=== PATIENT | male | born 1965 | race Caucasian/White ===

== ENCOUNTER 2023-07-07 13:02 | Inpatient (IN) | payer OTHER ==
[2023-07-07] MEDS: LACTATED RINGERS SOLUTION 1000 ML INFUS.BAG IV ONE (14:30)
[2023-07-07 14:37] LABS: HEMATOCRIT 35.9 % (35.4-49); HEMOGLOBIN 11.8 G/dL (11.7-16.9); MCH 26.7 pg (25.7-33.7); MCHC 32.9 g/dl (32.0-35.9); MEAN CELL VOLUME 81.3 fl (80-96); MEAN PLT VOLUME 7.2 fl (7.5-11.1); PLATELET COUNT 322.2 10^3/uL (134-434); RBC 4.42 10^6/uL (4.00-5.60); WHITE BLOOD COUNT 8.1 10^3/uL (4.0-10.8)
[2023-07-07 14:46] LABS: INR 1.17 (0.83-1.09); PROTHROMBIN TIME (PATIENT) 13.5 SEC (9.7-13.0)
[2023-07-07 14:50] LABS: EPITHELIAL CELLS 0-5 /hpf
[2023-07-07 14:55] LABS: ALBUMIN 3.2 g/dl (3.4-5.0); BILIRUBIN,TOTAL 0.5 mg/dl (0.2-1); CALCIUM 9.3 mg/dl (8.5-10.1); CREATININE 0.7 mg/dl (0.6-1.3); POTASSIUM 4.3 mmol/L (3.5-5.1); TOT PROT 5.3 g/dl (6.4-8.2)
[2023-07-07 15:04] LABS: ACTIVATED PTT 25.5 SECONDS (25.2-36.5)
[2023-07-07 15:13] LABS: PLATELET ESTIMATE ADEQUATE
[2023-07-07] MEDS ORDERED: ACETAMINOPHEN INJECTION 100 ML IVPB ONE (15:42)
[2023-07-07] MEDS: ACETAMINOPHEN 1000 MG/100 ML BAG IVPB ONE (15:45)
[2023-07-07] MEDS ORDERED: ACETAMINOPHEN 1000 MG/100 ML BAG IVPB PRN (19:58)
[2023-07-08] MEDS ORDERED: MELATONIN 5 MG TABLETS PO PRN (01:21)
[2023-07-08 09:19] LABS: CALCIUM 8.5 mg/dl (8.5-10.1); CREATININE 0.6 mg/dl (0.6-1.3); PHOSPHOROUS 4.7 (2.5-4.9); POTASSIUM 4.6 mmol/L (3.5-5.1)
[2023-07-08 09:20] LABS: MAGNESIUM 1.9 mg/dL (1.8-2.4)
[2023-07-08] MEDS: SODIUM CHLORIDE 1,000 ML IV SCH (09:31)
[2023-07-08] MEDS: ESCITALOPRAM OXALATE 10 MG TABLET PO SCH (09:36)
[2023-07-08 09:56] LABS: BASO % 0.3 % (0-2.0); EOS % 0.5 % (0-4.5); HEMOGLOBIN 10.4 GM/dL (11.7-16.9); MCH 26.9 pg (25.7-33.7); MCHC 33.7 g/dl (32.0-35.9); MEAN CELL VOLUME 79.8 fl (80-96); MEAN PLT VOLUME 7.6 fl (7.5-11.1); MONO % 14.6 % (3.8-10.2); NEUT % 77.6 % (42.8-82.8); PLATELET COUNT 327 10^3/uL (134-434); RBC 3.88 M/mm3 (4.00-5.60); RDW 15.3 % (11.9-15.9); WHITE BLOOD COUNT 6.8 K/mm3 (4.0-10.0)
[2023-07-08] MEDS ORDERED: HEPARIN NA (PORCINE) 5,000 UNITS/ML 1ML VIAL SQ SCH (14:00)
[2023-07-08] MEDS ORDERED: ACETAMINOPHEN 325 MG TABLET (FP) PO PRN (19:58)
[2023-07-08 21:09] LABS: HIV INTERPRETATION NEGATIVE (NEGATIVE)
[2023-07-09 07:59] LABS: BASO % 0.3 % (0-2.0); EOS % 0.3 % (0-4.5); HEMATOCRIT 31.2 % (35.4-49); HEMOGLOBIN 10.4 GM/dL (11.7-16.9); LYMPH % 6.7 % (8-40); MCHC 33.4 g/dl (32.0-35.9); MEAN CELL VOLUME 80.7 fl (80-96); MEAN PLT VOLUME 7.2 fl (7.5-11.1); MONO % 14.5 % (3.8-10.2); NEUT % 78.2 % (42.8-82.8); PLATELET COUNT 357 10^3/uL (134-434); RBC 3.86 M/mm3 (4.00-5.60); RDW 15.7 % (11.9-15.9); WHITE BLOOD COUNT 7.3 K/mm3 (4.0-10.0)
[2023-07-09 08:10] LABS: INR 1.17 (0.83-1.09); PROTHROMBIN TIME (PATIENT) 13.6 SEC (9.7-13.0)
[2023-07-09 08:32] LABS: POTASSIUM 4.7 mmol/L (3.5-5.1)
[2023-07-09 08:34] LABS: BLOOD UREA NITROGEN 14.1 mg/dL (7-18); CALCIUM 8.4 mg/dL (8.5-10.1); MAGNESIUM 2.2 mg/dL (1.8-2.4)
[2023-07-09 08:37] LABS: CREATININE 0.6 mg/dL (0.55-1.3)
[2023-07-09 08:38] LABS: PHOSPHOROUS 4.2 mg/dL (2.5-4.9)
[2023-07-09 08:39] LABS: BILIRUBIN,TOTAL 0.5 mg/dL (0.2-1); TOT PROT 4.8 g/dl (6.4-8.2)
[2023-07-09] MEDS ORDERED: MIDAZOLAM HCL 2 MG/2 ML SINGLE DOSE VIAL ONE (10:49)
[2023-07-09] MEDS: SODIUM CHLORIDE 500 ML IV SCH (11:45)
[2023-07-09] MEDS: MIDAZOLAM HCL 2 MG/2 ML SINGLE DOSE VIAL IVPUSH ONE ×2 (11:58→12:09)
[2023-07-09] MEDS: FENTANYL CITRATE/PF 50 MCG/ML VIAL IVPUSH ONE ×2 (11:58→12:09)
[2023-07-09 12:06] LABS: HEMOGLOBIN 11.7 GM/dL (11.7-16.9); MCH 26.3 pg (25.7-33.7); MCHC 32.4 g/dl (32.0-35.9); MEAN CELL VOLUME 81.1 fl (80-96); MEAN PLT VOLUME 7.5 fl (7.5-11.1); PLATELET COUNT 441 10^3/uL (134-434); RBC 4.44 M/mm3 (4.00-5.60); RDW 15.8 % (11.9-15.9); WHITE BLOOD COUNT 8.5 K/mm3 (4.0-10.0)
[2023-07-09 12:24] LABS: ANISOCYTOSIS 0; MACROCYTOSIS 0
[2023-07-09 12:25] LABS: PLATELET ESTIMATE ADEQUATE
[2023-07-09] MEDS: SODIUM CHLORIDE 1,000 ML IV SCH (15:00)
[2023-07-09] MEDS: VITAMIN B COMPLEX W/C COMBO TABLET (FP) PO SCH (15:01)
[2023-07-09] MEDS ORDERED: CYPROHEPTADINE HCL 4 MG TABLET PO SCH (16:30)
[2023-07-09] MEDS: CYPROHEPTADINE HCL 4 MG TABLET PO SCH (19:38)
[2023-07-10 06:29] LABS: BASO % 0.6 % (0-2.0); EOS % 0.7 % (0-4.5); HEMATOCRIT 31.6 % (35.4-49); HEMOGLOBIN 10.6 GM/dL (11.7-16.9); LYMPH % 6.8 % (8-40); MCH 26.9 pg (25.7-33.7); MCHC 33.5 g/dl (32.0-35.9); MEAN CELL VOLUME 80.3 fl (80-96); MEAN PLT VOLUME 7.1 fl (7.5-11.1); MONO % 11.9 % (3.8-10.2); PLATELET COUNT 369 10^3/uL (134-434); RBC 3.93 M/mm3 (4.00-5.60); RDW 15.4 % (11.9-15.9); WHITE BLOOD COUNT 7.3 K/mm3 (4.0-10.0)
[2023-07-10 06:57] LABS: POTASSIUM 4.7 mmol/L (3.5-5.1)
[2023-07-10 07:02] LABS: BLOOD UREA NITROGEN 15.1 mg/dL (7-18); CALCIUM 8.3 mg/dL (8.5-10.1)
[2023-07-10 07:06] LABS: CREATININE 0.7 mg/dL (0.55-1.3)
[2023-07-10 07:07] LABS: BILIRUBIN,TOTAL 0.4 mg/dL (0.2-1); TOT PROT 4.8 g/dl (6.4-8.2)
[2023-07-10 08:11] LABS: CARCINOEMBRYONIC ANTIGEN 2.5 ng/mL (0.0-4.7)
[2023-07-10] MEDS: ONDANSETRON 4 MG/2 ML VIAL IVPUSH PRN (12:36)
[2023-07-10] MEDS ORDERED: TRIMETHOBENZAMIDE HCL 200MG/2ML INJ IM PRN (15:39)
[2023-07-10] MEDS: MAG HYDROX/AL HYDROX/SIMETH 30 ML UNIT-DOSE CUP PO PRN (18:22)
[2023-07-11] MEDS: SIMETHICONE 80 MG TAB.CHEW (FP) PO PRN (02:44)
[2023-07-11 09:41] LABS: BASO % 0.5 % (0-2.0); EOS % 0.4 % (0-4.5); HEMATOCRIT 34.5 % (35.4-49); HEMOGLOBIN 11.3 GM/dL (11.7-16.9); LYMPH % 6.5 % (8-40); MCH 26.6 pg (25.7-33.7); MCHC 32.7 g/dl (32.0-35.9); MEAN CELL VOLUME 81.5 fl (80-96); MEAN PLT VOLUME 7.3 fl (7.5-11.1); MONO % 13.1 % (3.8-10.2); NEUT % 79.5 % (42.8-82.8); PLATELET COUNT 413 10^3/uL (134-434); RBC 4.23 M/mm3 (4.00-5.60); RDW 15.4 % (11.9-15.9); WHITE BLOOD COUNT 8.1 K/mm3 (4.0-10.0)
[2023-07-11 10:00] LABS: POTASSIUM 4.6 mmol/L (3.5-5.1)
[2023-07-11 10:09] LABS: CALCIUM 8.5 mg/dL (8.5-10.1)
[2023-07-11 10:10] LABS: BLOOD UREA NITROGEN 18.2 mg/dL (7-18)
[2023-07-11 10:13] LABS: CREATININE 0.8 mg/dL (0.55-1.3)
[2023-07-11] MEDS: FUROSEMIDE 40 MG/4 ML INJECTABLE VIAL IVPUSH ONE (11:53)
[2023-07-11] MEDS: ENOXAPARIN NA (PORCINE) 40 MG/0.4 ML DISP.SYRIN SQ SCH (12:11)
[2023-07-11] MEDS: SENNOSIDES/DOCUSATE COMBO (SENNA PLUS) TABLET (UD) PO PRN (18:03)
[2023-07-11] MEDS: ACETAMINOPHEN 325 MG TABLET (FP) PO PRN (18:20)
[2023-07-11] MEDS: POLYETHYLENE GLYCOL (HEALTHYLAX) 3350 17 GM PACKET PO SCH (22:24)
[2023-07-12] MEDS: SODIUM PHOSPHATE/NA BIPHOS 133 ML ENEMA RC ONE (04:40)
[2023-07-12 09:17] LABS: BASO % 0.7 % (0-2.0); EOS % 0.3 % (0-4.5); HEMATOCRIT 33.5 % (35.4-49); LYMPH % 8.7 % (8-40); MCH 26.5 pg (25.7-33.7); MCHC 32.9 g/dl (32.0-35.9); MEAN CELL VOLUME 80.4 fl (80-96); MONO % 10.2 % (3.8-10.2); NEUT % 80.1 % (42.8-82.8); PLATELET COUNT 459 10^3/uL (134-434); RBC 4.17 M/mm3 (4.00-5.60); RDW 15.7 % (11.9-15.9); WHITE BLOOD COUNT 8.6 K/mm3 (4.0-10.0)
[2023-07-12 09:20] LABS: POTASSIUM 4.8 mmol/L (3.5-5.1)
[2023-07-12 09:23] LABS: ALBUMIN 2.1 g/dl (3.4-5.0); BLOOD UREA NITROGEN 19.4 mg/dL (7-18); CALCIUM 8.3 mg/dL (8.5-10.1)
[2023-07-12 09:26] LABS: CREATININE 0.8 mg/dL (0.55-1.3)
[2023-07-12 09:28] LABS: BILIRUBIN,TOTAL 0.5 mg/dL (0.2-1); TOT PROT 5.3 g/dl (6.4-8.2)
[2023-07-12] MEDS: SENNOSIDES/DOCUSATE COMBO (SENNA PLUS) TABLET (UD) PO ONE (14:48)
[2023-07-12 15:00] VITALS: BMI 23.6
[2023-07-13 05:44] VITALS: BP 105/55; PULSE 98; RESP 16; TEMP 97.7
[2023-07-13] MEDS: FUROSEMIDE 40 MG/4 ML INJECTABLE VIAL IVPUSH ONE (10:20)
== END 2023-07-13 13:25 | disposition home or self-care (01) | DRG 841 ==
LOC: FER 13:02 → FM/S 16:43 → UNDOADMIN 16:43 → J7W 07-08 15:15
PROVIDERS: ADMIT Internal Medicine; ATTEND Internal Medicine
DX: C85.80 Other specified types of non-Hodgkin lymphoma, unspecified site (principal); E44.0 Moderate protein-calorie malnutrition; E87.1 Hypo-osmolality and hyponatremia; R59.0 Localized enlarged lymph nodes; K86.9 Disease of pancreas, unspecified; R60.0 Localized edema; F32.A Depression, unspecified; K59.00 Constipation, unspecified; R63.4 Abnormal weight loss; Z68.23 Body mass index [BMI] 23.0-23.9, adult
CPT/HCPCS: 36415; 38505; 70492-TC; 71260-TC; 74177-TC; 76536-TC; 77012-TC; 80048; 80053; 81003; 81015; 82378; 82962; 83615; 83690; 83735; 83930; 83935; 84100; 84153; 84300; 84436; 84439; 84443; 85025; 85027; 85610; 85730; 86301; 87086; 87389; 88300-TC; 88305-TC; 93306-TC; 93970-TC; 99285-25; J0131; Q9967

== ENCOUNTER 2023-08-09 10:42 | Inpatient (IN) | payer OTHER ==
[2023-08-09] MEDS ORDERED: NOREPINEPHRINE BITARTRATE/D5W 8 MG/250 ML BAG IVPB ONE (11:07)
[2023-08-09 11:12] LABS: VENOUS O2 SATURATION 79.7 % (70-80); VENOUS PCO2 63.3 mmHg (38-52)
[2023-08-09 11:15] LABS: VENOUS PH 7.053 (7.310-7.410)
[2023-08-09] MEDS: SODIUM CHLORIDE 1,000 ML IV STA ×2 (11:21→11:22)
[2023-08-09 11:22] LABS: HEMATOCRIT 28.1 % (35.4-49); HEMOGLOBIN 8.5 GM/dL (11.7-16.9); MCH 26.1 pg (25.7-33.7); MCHC 30.3 g/dl (32.0-35.9); MEAN CELL VOLUME 86.2 fl (80-96); RBC 3.26 M/mm3 (4.00-5.60)
[2023-08-09] MEDS ORDERED: VASopressin 20 UNITS/ML VIAL IV ONE (11:26)
[2023-08-09 11:29] LABS: INR 1.34 (0.83-1.09); PROTHROMBIN TIME (PATIENT) 15.5 SEC (9.7-13.0)
[2023-08-09 11:32] LABS: ACTIVATED PTT 41.4 SECONDS (25.2-36.5)
[2023-08-09 11:33] LABS: CHLORIDE 100 mmol/L (98-107); POTASSIUM 3.6 mmol/L (3.5-5.1); SODIUM 134 mmol/L (136-145)
[2023-08-09 11:35] LABS: ALBUMIN 1.4 g/dl (3.4-5.0); ANION GAP 15 mmol/L (4-13); BLOOD UREA NITROGEN 22.8 mg/dL (7-18); CO2 20 mmol/L (21-32); GLUCOSE,RANDOM 83 mg/dL (74-106)
[2023-08-09 11:38] LABS: CREATININE 1.1 mg/dL (0.55-1.3); SGOT/AST 196 U/L (15-37); SGPT/ALT 121 U/L (13-61)
[2023-08-09 11:40] LABS: BILIRUBIN,TOTAL 0.6 mg/dL (0.2-1); TOT PROT 4.1 g/dl (6.4-8.2)
[2023-08-09 11:41] LABS: ALK PHOS 112 U/L (45-117)
[2023-08-09] MEDS: NOREPINEPHRINE BITARTRATE 8,000 MCG in DEXTROSE 5%-WATER - 492 ML IV STA (11:45)
[2023-08-09] MEDS: SODIUM CHLORIDE IVPB STA (12:08)
[2023-08-09] MEDS: VASOPRESSIN IVPB STA (12:08)
[2023-08-09 12:11] LABS: EPI CELLS >36 /uL (0-25.1); HYALINE CASTS 19 /uL (0-3.1); PH,URINE 5.5 (5.0-8.0); URINE APPEARANCE CLOUDY; URINE BACTERIA 12 /uL (0-1359); URINE BILIRUBIN 1+ (NEGATIVE); URINE COLOR DK YELLOW; URINE GLUCOSE (UA) NEGATIVE (NEGATIVE); URINE KETONE TRACE (NEGATIVE); URINE LEUK ESTERASE TRACE (NEGATIVE); URINE NITRITE NEGATIVE (NEGATIVE); URINE PROTEIN 1+ (NEGATIVE); URINE WBC 98 /uL (0-25.8)
[2023-08-09 12:13] LABS: URINE RBC 72.5 /uL (0-23.9); YEAST NEGATIVE (NEGATIVE)
[2023-08-09 12:18] LABS: PLATELET COUNT 8 10^3/uL (134-434); WHITE BLOOD COUNT 0.3 K/mm3 (4.0-10.0)
[2023-08-09] MEDS ORDERED: TRIPLE LUMEN FLUSH 4 ML ML IVPUSH PRN (13:39)
[2023-08-09] MEDS ORDERED: VANCOMYCIN 1 GRAM (PRE-DOCKED) 1,000 MG/250 ML BAG IVPB ONE (13:43)
[2023-08-09] MEDS ORDERED: PIPERACILLIN/TAZOB 3.375 GM 3.375 GM/50 ML BAG IVPB ONE (13:43)
[2023-08-09] MEDS: VANCOMYCIN 1,000 MG in DEXTROSE 5%-WATER - 250 ML IVPB ONE (13:54)
[2023-08-09] MEDS: PIPERACILLIN/TAZOB 3.375 GM 3.375 GM in DEXTROSE 5%-WATER - 50 ML IVPB ONE (13:54)
[2023-08-09 14:01] LABS: CALCIUM 6.8 mg/dL (8.5-10.1)
[2023-08-09 14:50] LABS: LACTIC ACID 9.3 mmol/L (0.4-2.0)
[2023-08-09] MEDS ORDERED: DEXTROSE 50%-WATER 25 GM/50 ML DISP.SYRIN ONE (14:57)
[2023-08-09] MEDS: LACTATED RINGERS SOLUTION 1,000 ML/1,000 ML INFUS.BAG IV STA (16:04)
[2023-08-09] MEDS: HYDROCORTISONE SOD SUCCINATE 100 MG/2 ML VIAL IVPUSH SCH (16:05)
[2023-08-09] MEDS: SODIUM BICARBONATE 8.4% - 150 MEQ in DEXTROSE 5%-WATER - 950 ML IVPB SCH (16:05)
[2023-08-09] MEDS: SODIUM BICARBONATE 8.4% 50 MEQ/50 ML DISP.SYRIN IVPUSH SCH (16:46)
[2023-08-09] MEDS: PHENYLEPHRINE NS PREMIX 50,000 MCG/500 ML BAG CVP SCH (17:33)
[2023-08-09] MEDS: CEFEPIME 2 GM in DEXTROSE 5%-WATER 100 ML IVPB SCH (17:43)
[2023-08-09 17:56] LABS: ARTERIAL BLOOD GAS BASE EXCESS -0.9 mmol/L (-2-2); ARTERIAL BLOOD GAS PO2 80.6 mmHg (80-100); ARTERIAL BLOOD GAS pH 7.517 (7.350-7.450)
[2023-08-09] MEDS: TBO-FILGRASTIM 300 MCG/0.5 ML DISP.SYRINGE SQ ONE (17:58)
[2023-08-09] MEDS: CALCIUM GLUCONATE 10% - 1,000 MG/10 ML VIAL IVPB ONE (17:59)
[2023-08-09] MEDS ORDERED: CEFEPIME HCL 2 GM VIAL (RESTRICTED TO ID) IVPB SCH (18:00)
[2023-08-09] MEDS: CHLORHEXIDINE GLUCONATE 4% CLEANSER FOR DECOLONIZATION TP SCH (22:16)
[2023-08-09] MEDS: MUPIROCIN 2% TOPICAL OINTMENT FOR DECOLONIZATION NS SCH (22:16)
[2023-08-10 06:32] LABS: ARTERIAL BLD GAS O2 SATURATION 98.6 % (95-98); ARTERIAL BLOOD GAS BASE EXCESS -3.8 mmol/L (-2-2); ARTERIAL BLOOD GAS PO2 110.5 mmHg (80-100); ARTERIAL BLOOD GAS pH 7.537 (7.350-7.450)
[2023-08-10 06:41] LABS: VENT MODE A/C
[2023-08-10 06:42] LABS: VENT RATE 22
[2023-08-10] MEDS: NOREPINEPHRINE BITARTRATE/D5W 8 MG/250 ML BAG IVPB SCH (07:00)
[2023-08-10] MEDS: VASopressin 40 UNITS/100 ML BAG IV SCH (07:00)
[2023-08-10] MEDS ORDERED: PHENYLEPHRINE HCL 10 MG/1 ML SINGLE DOSE VIAL ONE (07:10)
[2023-08-10 07:51] LABS: HEMATOCRIT 21.1 % (35.4-49); MCH 26.7 pg (25.7-33.7); MCHC 32.7 g/dl (32.0-35.9); MEAN CELL VOLUME 81.7 fl (80-96); MEAN PLT VOLUME 9.2 fl (7.5-11.1); RBC 2.59 M/mm3 (4.00-5.60); RDW 16.6 % (11.9-15.9)
[2023-08-10 07:53] LABS: INR 2.07 (0.83-1.09); PROTHROMBIN TIME (PATIENT) 23.8 SEC (9.7-13.0)
[2023-08-10 07:56] LABS: ACTIVATED PTT 45.1 SECONDS (25.2-36.5)
[2023-08-10 08:08] LABS: CHLORIDE 101 mmol/L (98-107); SODIUM 138 mmol/L (136-145)
[2023-08-10 08:21] LABS: BLOOD UREA NITROGEN 27.4 mg/dL (7-18); CO2 18 mmol/L (21-32); GLUCOSE,RANDOM 162 mg/dL (74-106); LACTIC ACID 13.6 mmol/L (0.4-2.0); MAGNESIUM 1.6 mg/dL (1.8-2.4); SGPT/ALT 147 U/L (13-61); TOT PROT 2.9 g/dl (6.4-8.2)
[2023-08-10 08:23] LABS: ALK PHOS 106 U/L (45-117); CREATININE 1.5 mg/dL (0.55-1.3); PHOSPHOROUS 3.1 mg/dL (2.5-4.9)
[2023-08-10 08:31] LABS: HEMOGLOBIN 6.9 GM/dL (11.7-16.9); PLATELET COUNT 8 10^3/uL (134-434); WHITE BLOOD COUNT 0.1 K/mm3 (4.0-10.0)
[2023-08-10] MEDS ORDERED: NOREPINEPHRINE BITARTRATE 4 MG/4 ML ML IV ONE (09:03)
[2023-08-10 09:17] LABS: ANION GAP 20 mmol/L (4-13); CALCIUM 5.3 mg/dL (8.5-10.1); POTASSIUM 2.5 mmol/L (3.5-5.1); SGOT/AST 150 U/L (15-37)
[2023-08-10] MEDS: SODIUM BICARBONATE 8.4% - 150 MEQ in DEXTROSE 5%-WATER - 950 ML IVPB SCH (09:30)
[2023-08-10] MEDS ORDERED: CALCIUM CHLORIDE 1 GM/10 ML *DISP.SYRIN IVPB ONE (09:40)
[2023-08-10] MEDS ORDERED: PANTOPRAZOLE SODIUM 40 MG VIAL IVPUSH SCH (10:00)
[2023-08-10] MEDS: PHYTONADIONE 10 MG/1 ML AMP IVPB ONE (10:12)
[2023-08-10] MEDS: VANCOMYCIN/WATER 1250 MG 1,250 MG/250 ML BAG IVPB ONE (10:12)
[2023-08-10] MEDS: PANTOPRAZOLE SODIUM 40 MG VIAL IVPUSH SCH (10:15)
[2023-08-10] MEDS ORDERED: CALCIUM CHLORIDE 1 GM/10 ML *DISP.SYRIN ONE (10:22)
[2023-08-10] MEDS: CALCIUM GLUCONATE 10% - 1,000 MG/10 ML VIAL IVPB ONE ×2 (12:03→21:33)
[2023-08-10] MEDS: KCL 20 MEQ PREMIX BAG 20 MEQ/100 ML INFUS.BAG IVPB SCH ×2 (12:22→21:30)
[2023-08-10] MEDS: TBO-FILGRASTIM 300 MCG/0.5 ML DISP.SYRINGE SQ SCH (12:22)
[2023-08-10] MEDS: MAGNESIUM SULFATE IN WATER 2 GM/50 ML IVPB IVPB ONE ×2 (13:30→21:32)
[2023-08-10] MEDS: CEFEPIME 2 GM in DEXTROSE 5%-WATER 100 ML IVPB SCH (17:30)
[2023-08-10 18:19] LABS: LACTIC ACID 11.7 mmol/L (0.4-2.0)
[2023-08-10 18:21] LABS: CHLORIDE 99 mmol/L (98-107); HEMATOCRIT 28.6 % (35.4-49); HEMOGLOBIN 9.7 GM/dL (11.7-16.9); MCH 27.6 pg (25.7-33.7); MCHC 33.8 g/dl (32.0-35.9); MEAN CELL VOLUME 81.6 fl (80-96); MEAN PLT VOLUME 8.1 fl (7.5-11.1); PLATELET COUNT 39 10^3/uL (134-434); POTASSIUM 3.3 mmol/L (3.5-5.1); RBC 3.51 M/mm3 (4.00-5.60); RDW 15.9 % (11.9-15.9); SODIUM 138 mmol/L (136-145)
[2023-08-10 18:23] LABS: ANION GAP 18 mmol/L (4-13); CO2 21 mmol/L (21-32); GLUCOSE,RANDOM 162 mg/dL (74-106); MAGNESIUM 1.8 mg/dL (1.8-2.4)
[2023-08-10 18:25] LABS: ALBUMIN 1.2 g/dl (3.4-5.0); CREATININE 1.7 mg/dL (0.55-1.3); SGOT/AST 72 U/L (15-37); SGPT/ALT 123 U/L (13-61)
[2023-08-10 18:27] LABS: TOT PROT 3.5 g/dl (6.4-8.2)
[2023-08-10 18:28] LABS: ALK PHOS 101 U/L (45-117); BILIRUBIN,TOTAL 0.9 mg/dL (0.2-1); WHITE BLOOD COUNT 0.1 K/mm3 (4.0-10.0)
[2023-08-10] MEDS ORDERED: KCL 20 MEQ PREMIX BAG 20 MEQ/100 ML INFUS.BAG IVPB SCH (18:45)
[2023-08-10] MEDS ORDERED: DEXTROSE 50%-WATER 25 GM/50 ML DISP.SYRIN ONE (19:04)
[2023-08-10] MEDS ORDERED: CALCIUM GLUCONATE 10% - 1,000 MG/10 ML VIAL ONE (21:23)
[2023-08-10] MEDS ORDERED: ARTIFICIAL TEARS OPHTHALMIC DROPS OU PRN (22:44)
[2023-08-10] MEDS: VANCOMYCIN/WATER FOR INJ (PEG) 1,000 MG/200 ML BAG IVPB SCH (23:00)
[2023-08-11 06:08] LABS: ARTERIAL BLD GAS O2 SATURATION 99.8 % (95-98); ARTERIAL BLOOD GAS BASE EXCESS -3.1 mmol/L (-2-2); ARTERIAL BLOOD GAS PO2 367.3 mmHg (80-100); ARTERIAL BLOOD GAS pH 7.551 (7.350-7.450)
[2023-08-11 06:15] LABS: VENT MODE A/C; VENT RATE 16
[2023-08-11 07:31] LABS: INR 1.66 (0.83-1.09); PROTHROMBIN TIME (PATIENT) 19.2 SEC (9.7-13.0)
[2023-08-11 07:44] LABS: CHLORIDE 97 mmol/L (98-107); HEMATOCRIT 27.4 % (35.4-49); HEMOGLOBIN 9.3 GM/dL (11.7-16.9); MCH 27.4 pg (25.7-33.7); MCHC 33.9 g/dl (32.0-35.9); MEAN CELL VOLUME 80.8 fl (80-96); MEAN PLT VOLUME 8.6 fl (7.5-11.1); POTASSIUM 3.4 mmol/L (3.5-5.1); RDW 15.9 % (11.9-15.9); SODIUM 133 mmol/L (136-145)
[2023-08-11 07:48] LABS: ANION GAP 17 mmol/L (4-13); BLOOD UREA NITROGEN 33.8 mg/dL (7-18); CO2 20 mmol/L (21-32); MAGNESIUM 1.9 mg/dL (1.8-2.4)
[2023-08-11 07:49] LABS: ALBUMIN 1.1 g/dl (3.4-5.0); GLUCOSE,RANDOM 177 mg/dL (74-106); PLATELET COUNT 12 10^3/uL (134-434); WHITE BLOOD COUNT 0.1 K/mm3 (4.0-10.0)
[2023-08-11 07:50] LABS: SGPT/ALT 98 U/L (13-61); URIC ACID 2.2 mg/dL (2.6-7.2)
[2023-08-11 07:51] LABS: BILIRUBIN,DIRECT 0.4 mg/dL (0.0-0.2)
[2023-08-11 07:53] LABS: PHOSPHOROUS 3.5 mg/dL (2.5-4.9); TOT PROT 3.1 g/dl (6.4-8.2)
[2023-08-11 07:54] LABS: ALK PHOS 85 U/L (45-117); BILIRUBIN,TOTAL 0.8 mg/dL (0.2-1)
[2023-08-11] MEDS ORDERED: POTASSIUM CHLORIDE ORAL LIQUID 20 MEQ/15 ML PO ONE (07:57)
[2023-08-11] MEDS: ARTIFICIAL TEARS OPHTHALMIC DROPS OU SCH (08:10)
[2023-08-11 08:24] LABS: LACTIC ACID 11.4 mmol/L (0.4-2.0)
[2023-08-11 08:32] LABS: SGOT/AST 37 U/L (15-37)
[2023-08-11] MEDS: KCL 10 MEQ IVPB 10 MEQ/100 ML INFUS.BAG IVPB SCH (09:12)
[2023-08-11] MEDS: MEROPENEM 500 MG in DEXTROSE 5%-WATER 100 ML IVPB SCH (09:30)
[2023-08-11] MEDS: SODIUM CHLORIDE 1,000 ML IV SCH (10:00)
[2023-08-11 12:26] LABS: LACTIC ACID 10.8 mmol/L (0.4-2.0)
[2023-08-11 17:30] LABS: HEMATOCRIT 25.6 % (35.4-49); HEMOGLOBIN 8.5 GM/dL (11.7-16.9); MCHC 33.2 g/dl (32.0-35.9); MEAN CELL VOLUME 81.2 fl (80-96); MEAN PLT VOLUME 7.9 fl (7.5-11.1); PLATELET COUNT 53 10^3/uL (134-434); RBC 3.16 M/mm3 (4.00-5.60); RDW 15.9 % (11.9-15.9)
[2023-08-11 17:33] LABS: WHITE BLOOD COUNT 0.1 K/mm3 (4.0-10.0)
[2023-08-11 18:40] LABS: ANISOCYTOSIS 1+
[2023-08-11 18:41] LABS: OVALOCYTE 1+
[2023-08-11 20:21] LABS: PLATELET ESTIMATE DECREASED
[2023-08-12 06:45] LABS: HEMATOCRIT 24.2 % (35.4-49); HEMOGLOBIN 8.2 GM/dL (11.7-16.9); MCH 27.5 pg (25.7-33.7); MCHC 34.1 g/dl (32.0-35.9); MEAN CELL VOLUME 80.7 fl (80-96); MEAN PLT VOLUME 7.4 fl (7.5-11.1)
[2023-08-12 06:58] LABS: WHITE BLOOD COUNT 0.1 K/mm3 (4.0-10.0)
[2023-08-12 06:59] LABS: PLATELET COUNT 14 10^3/uL (134-434)
[2023-08-12 07:00] LABS: CHLORIDE 97 mmol/L (98-107); POTASSIUM 3.3 mmol/L (3.5-5.1); SODIUM 133 mmol/L (136-145)
[2023-08-12 07:04] LABS: ALBUMIN 1.1 g/dl (3.4-5.0)
[2023-08-12 07:05] LABS: ANION GAP 11 mmol/L (4-13); BLOOD UREA NITROGEN 37.9 mg/dL (7-18); CO2 25 mmol/L (21-32); GLUCOSE,RANDOM 107 mg/dL (74-106); MAGNESIUM 1.8 mg/dL (1.8-2.4)
[2023-08-12 07:07] LABS: CREATININE 1.9 mg/dL (0.55-1.3); URIC ACID 2.5 mg/dL (2.6-7.2)
[2023-08-12 07:09] LABS: PHOSPHOROUS 3.6 mg/dL (2.5-4.9); SGOT/AST 24 U/L (15-37); SGPT/ALT 64 U/L (13-61); TOT PROT 3.4 g/dl (6.4-8.2)
[2023-08-12 07:10] LABS: ALK PHOS 73 U/L (45-117); LDH 415 U/L (87-246)
[2023-08-12 07:14] LABS: CALCIUM 5.4 mg/dL (8.5-10.1)
[2023-08-12 09:28] LABS: ANISOCYTOSIS 1+; MACROCYTOSIS 0
[2023-08-12] MEDS: CALCIUM GLUC IN NACL, ISO-OSM 1 GM/50 ML BAG IVPB ONE (09:50)
[2023-08-12] MEDS: KCL 20 MEQ PREMIX BAG 20 MEQ/100 ML INFUS.BAG IVPB SCH (09:50)
[2023-08-12 13:23] VITALS: BMI 30.4
[2023-08-12] MEDS: MEROPENEM 1 GM in DEXTROSE 5%-WATER 100 ML IVPB SCH ×2 (14:06→19:58)
[2023-08-13 07:12] LABS: HEMATOCRIT 23.3 % (35.4-49); HEMOGLOBIN 7.9 GM/dL (11.7-16.9); MCH 27.4 pg (25.7-33.7); MCHC 33.9 g/dl (32.0-35.9); MEAN CELL VOLUME 80.8 fl (80-96); MEAN PLT VOLUME 9.3 fl (7.5-11.1); RBC 2.89 M/mm3 (4.00-5.60); RDW 16.2 % (11.9-15.9)
[2023-08-13 07:27] LABS: CO2 25 mmol/L (21-32); MAGNESIUM 1.9 mg/dL (1.8-2.4)
[2023-08-13 07:29] LABS: ALBUMIN 0.9 g/dl (3.4-5.0); BLOOD UREA NITROGEN 42.6 mg/dL (7-18); GLUCOSE,RANDOM 134 mg/dL (74-106); WHITE BLOOD COUNT 0.6 K/mm3 (4.0-10.0)
[2023-08-13 07:30] LABS: PLATELET COUNT 3 10^3/uL (134-434)
[2023-08-13 07:31] LABS: CREATININE 1.8 mg/dL (0.55-1.3); SGOT/AST 22 U/L (15-37); SGPT/ALT 48 U/L (13-61)
[2023-08-13 07:32] LABS: PHOSPHOROUS 3.2 mg/dL (2.5-4.9); TOT PROT 2.9 g/dl (6.4-8.2)
[2023-08-13 07:33] LABS: LDH 439 U/L (87-246)
[2023-08-13 07:35] LABS: ALK PHOS 66 U/L (45-117)
[2023-08-13 07:43] LABS: ANION GAP 12 mmol/L (4-13); CHLORIDE 99 mmol/L (98-107); POTASSIUM 3.4 mmol/L (3.5-5.1); SODIUM 136 mmol/L (136-145)
[2023-08-13 08:32] LABS: CALCIUM 5.9 mg/dL (8.5-10.1)
[2023-08-13] MEDS: POTASSIUM CHLORIDE ORAL LIQUID 20 MEQ/15 ML PO ONE (09:44)
[2023-08-13] MEDS: CALCIUM GLUCONATE 10% - 1,000 MG/10 ML VIAL IVPB ONE (09:47)
[2023-08-13 10:10] LABS: ANISOCYTOSIS 0; MACROCYTOSIS 0
[2023-08-13] MEDS: ALBUMIN HUMAN 25% 12.5 GM/50 ML VIAL IV SCH (13:08)
[2023-08-13] MEDS: FUROSEMIDE INJECTION 100 MG in DEXTROSE 5%-WATER - 40 ML IVPB SCH (13:09)
[2023-08-13 14:43] LABS: INR 1.5 (0.83-1.09); PROTHROMBIN TIME (PATIENT) 17.3 SEC (9.7-13.0)
[2023-08-13 14:46] LABS: ACTIVATED PTT 44.4 SECONDS (25.2-36.5)
[2023-08-13 14:47] LABS: HEMATOCRIT 21.4 % (35.4-49); HEMOGLOBIN 7.1 GM/dL (11.7-16.9); MCH 27.1 pg (25.7-33.7); MCHC 33.2 g/dl (32.0-35.9); MEAN CELL VOLUME 81.4 fl (80-96); MEAN PLT VOLUME 8.6 fl (7.5-11.1); RBC 2.63 M/mm3 (4.00-5.60); RDW 16.1 % (11.9-15.9)
[2023-08-13 14:53] LABS: PLATELET COUNT 19 10^3/uL (134-434); WHITE BLOOD COUNT 0.8 K/mm3 (4.0-10.0)
[2023-08-14 06:16] LABS: CHLORIDE 99 mmol/L (98-107); SODIUM 137 mmol/L (136-145)
[2023-08-14 06:20] LABS: ANION GAP 10 mmol/L (4-13); CO2 28 mmol/L (21-32); MAGNESIUM 1.8 mg/dL (1.8-2.4)
[2023-08-14 06:21] LABS: BLOOD UREA NITROGEN 46.9 mg/dL (7-18); GLUCOSE,RANDOM 104 mg/dL (74-106)
[2023-08-14 06:27] LABS: ALK PHOS 62 U/L (45-117); BILIRUBIN,TOTAL 1.3 mg/dL (0.2-1); LDH 420 U/L (87-246); SGOT/AST 14 U/L (15-37); SGPT/ALT 35 U/L (13-61); TOT PROT 3.2 g/dl (6.4-8.2); URIC ACID 3.2 mg/dL (2.6-7.2)
[2023-08-14 06:28] LABS: ALBUMIN 1.2 g/dl (3.4-5.0); CALCIUM 6.1 mg/dL (8.5-10.1)
[2023-08-14 06:35] LABS: HEMATOCRIT 21.7 % (35.4-49); HEMOGLOBIN 7.5 GM/dL (11.7-16.9); MCH 27.5 pg (25.7-33.7); MCHC 34.4 g/dl (32.0-35.9); MEAN CELL VOLUME 80.1 fl (80-96); MEAN PLT VOLUME 10.8 fl (7.5-11.1); RBC 2.71 M/mm3 (4.00-5.60); RDW 16.2 % (11.9-15.9); WHITE BLOOD COUNT 2.1 K/mm3 (4.0-10.0)
[2023-08-14 06:39] LABS: PLATELET COUNT 3 10^3/uL (134-434)
[2023-08-14] MEDS: ALBUMIN HUMAN 25% 12.5 GM/50 ML VIAL IV SCH ×2 (07:20→10:32)
[2023-08-14] MEDS ORDERED: FUROSEMIDE 40 MG/4 ML INJECTABLE VIAL IVPUSH SCH ×2 (08:45→10:00)
[2023-08-14] MEDS: POTASSIUM CHLORIDE ORAL LIQUID 20 MEQ/15 ML PO SCH (09:01)
[2023-08-14] MEDS: FUROSEMIDE 40 MG/4 ML INJECTABLE VIAL IVPUSH SCH ×2 (09:09→21:02)
[2023-08-14] MEDS: MEROPENEM 1 GM in DEXTROSE 5%-WATER 100 ML IVPB SCH (21:08)
[2023-08-15 07:04] LABS: CHLORIDE 100 mmol/L (98-107); SODIUM 137 mmol/L (136-145)
[2023-08-15 07:15] LABS: BLOOD UREA NITROGEN 50.8 mg/dL (7-18); GLUCOSE,RANDOM 111 mg/dL (74-106)
[2023-08-15 07:16] LABS: CO2 31 mmol/L (21-32)
[2023-08-15 07:17] LABS: URIC ACID 3.6 mg/dL (2.6-7.2)
[2023-08-15 07:18] LABS: SGPT/ALT 28 U/L (13-61)
[2023-08-15 07:19] LABS: CREATININE 2.2 mg/dL (0.55-1.3); MAGNESIUM 1.6 mg/dL (1.8-2.4); PHOSPHOROUS 3.2 mg/dL (2.5-4.9); SGOT/AST 16 U/L (15-37)
[2023-08-15 07:21] LABS: TOT PROT 3.3 g/dl (6.4-8.2)
[2023-08-15 07:22] LABS: BILIRUBIN,TOTAL 1.4 mg/dL (0.2-1)
[2023-08-15 07:27] LABS: LDH 428 U/L (87-246)
[2023-08-15 07:32] LABS: ALBUMIN 1.6 g/dl (3.4-5.0); ALK PHOS 107 U/L (45-117); ANION GAP 7 mmol/L (4-13); POTASSIUM 2.6 mmol/L (3.5-5.1)
[2023-08-15 07:40] LABS: HEMATOCRIT 18.4 % (35.4-49); MCH 27.3 pg (25.7-33.7); MEAN CELL VOLUME 80.5 fl (80-96); MEAN PLT VOLUME 8.4 fl (7.5-11.1); RBC 2.28 M/mm3 (4.00-5.60); RDW 16.1 % (11.9-15.9); WHITE BLOOD COUNT 7.6 K/mm3 (4.0-10.0)
[2023-08-15 07:49] LABS: HEMOGLOBIN 6.2 GM/dL (11.7-16.9); PLATELET COUNT 8 10^3/uL (134-434)
[2023-08-15] MEDS ORDERED: CALCIUM GLUCONATE 10% - 1,000 MG/10 ML VIAL IVPUSH ONE (08:45)
[2023-08-15] MEDS: CALCIUM GLUC IN NACL, ISO-OSM 1 GM/50 ML BAG IVPB ONE (09:02)
[2023-08-15 09:22] LABS: ANISOCYTOSIS 0; HELMET CELLS 0; HOWELL-JOLLY BODIES 0; MACROCYTOSIS 0; OVALOCYTE 0; ROULEAU 0; SICKELED CELLS 0; TARGET CELLS 0; TEAR DROP CELLS 0; TOXIC GRANULATION 0
[2023-08-15] MEDS: KCL 20 MEQ PREMIX BAG 20 MEQ/100 ML INFUS.BAG IVPB SCH (09:26)
[2023-08-15] MEDS ORDERED: POTASSIUM CHLORIDE ORAL LIQUID 20 MEQ/15 ML PO SCH (10:00)
[2023-08-15] MEDS: POTASSIUM CHLORIDE ORAL LIQUID 20 MEQ/15 ML GT ONE (11:43)
[2023-08-15] MEDS ORDERED: VANCOMYCIN/WATER 1250 MG 1,250 MG/250 ML BAG IVPB SCH ×2 (13:00)
[2023-08-15] MEDS: VANCOMYCIN/WATER FOR INJ (PEG) 1,000 MG/200 ML BAG IVPB ONE (13:53)
[2023-08-15 18:03] LABS: HEMATOCRIT 22.4 % (35.4-49); HEMOGLOBIN 7.6 GM/dL (11.7-16.9); MCH 27.8 pg (25.7-33.7); MCHC 33.6 g/dl (32.0-35.9); MEAN CELL VOLUME 82.6 fl (80-96); MEAN PLT VOLUME 8.4 fl (7.5-11.1); RBC 2.72 M/mm3 (4.00-5.60); RDW 16.8 % (11.9-15.9)
[2023-08-15 23:56] LABS: PLATELET COUNT 27 10^3/uL (134-434)
[2023-08-16 06:25] LABS: ARTERIAL BLOOD GAS BASE EXCESS 1.1 mmol/L (-2-2); ARTERIAL BLOOD GAS PO2 129.4 mmHg (80-100); ARTERIAL BLOOD GAS pH 7.559 (7.350-7.450)
[2023-08-16 06:26] LABS: VENT MODE A/C; VENT RATE 14
[2023-08-16 06:36] LABS: HEMOGLOBIN 8.7 GM/dL (11.7-16.9); MCH 27.8 pg (25.7-33.7); MCHC 33.4 g/dl (32.0-35.9); MEAN CELL VOLUME 83.3 fl (80-96); RBC 3.12 M/mm3 (4.00-5.60); RDW 16.6 % (11.9-15.9); WHITE BLOOD COUNT 19.9 K/mm3 (4.0-10.0)
[2023-08-16 06:44] LABS: PLATELET COUNT 9 10^3/uL (134-434)
[2023-08-16 07:20] LABS: CHLORIDE 102 mmol/L (98-107); SODIUM 142 mmol/L (136-145)
[2023-08-16 07:26] LABS: BLOOD UREA NITROGEN 56.9 mg/dL (7-18); CO2 31 mmol/L (21-32); GLUCOSE,RANDOM 119 mg/dL (74-106); MAGNESIUM 1.7 mg/dL (1.8-2.4)
[2023-08-16 07:27] LABS: ALBUMIN 1.5 g/dl (3.4-5.0)
[2023-08-16 07:29] LABS: PHOSPHOROUS 3.2 mg/dL (2.5-4.9); SGOT/AST 15 U/L (15-37); SGPT/ALT 23 U/L (13-61)
[2023-08-16 07:30] LABS: CREATININE 2.3 mg/dL (0.55-1.3)
[2023-08-16 07:31] LABS: BILIRUBIN,TOTAL 1.7 mg/dL (0.2-1); TOT PROT 3.5 g/dl (6.4-8.2)
[2023-08-16 07:32] LABS: ALK PHOS 108 U/L (45-117)
[2023-08-16 07:49] LABS: ANION GAP 9 mmol/L (4-13); CALCIUM 6.6 mg/dL (8.5-10.1); POTASSIUM 2.7 mmol/L (3.5-5.1)
[2023-08-16] MEDS: MAGNESIUM SULFATE IN WATER 2 GM/50 ML IVPB IVPB ONE (08:55)
[2023-08-16] MEDS: CALCIUM GLUCONATE 10% - 1,000 MG/10 ML VIAL IVPB ONE (09:43)
[2023-08-16] MEDS: KCL 20 MEQ PREMIX BAG 20 MEQ/100 ML INFUS.BAG IVPB SCH (10:00)
[2023-08-16 16:57] LABS: HEMOGLOBIN 8.3 GM/dL (11.7-16.9); MCH 27.3 pg (25.7-33.7); MEAN CELL VOLUME 82.7 fl (80-96); MEAN PLT VOLUME 7.5 fl (7.5-11.1); PLATELET COUNT 39 10^3/uL (134-434); RBC 3.03 M/mm3 (4.00-5.60); RDW 16.7 % (11.9-15.9); WHITE BLOOD COUNT 26.1 K/mm3 (4.0-10.0)
[2023-08-17 07:14] LABS: CHLORIDE 103 mmol/L (98-107); SODIUM 141 mmol/L (136-145)
[2023-08-17 07:17] LABS: ALBUMIN 1.4 g/dl (3.4-5.0); BLOOD UREA NITROGEN 63.3 mg/dL (7-18); GLUCOSE,RANDOM 108 mg/dL (74-106); HEMATOCRIT 24.3 % (35.4-49); HEMOGLOBIN 7.9 GM/dL (11.7-16.9); MCH 27.4 pg (25.7-33.7); MCHC 32.7 g/dl (32.0-35.9); RDW 16.6 % (11.9-15.9); WHITE BLOOD COUNT 27.8 K/mm3 (4.0-10.0)
[2023-08-17 07:18] LABS: CO2 31 mmol/L (21-32)
[2023-08-17 07:20] LABS: CREATININE 2.4 mg/dL (0.55-1.3); PHOSPHOROUS 3.2 mg/dL (2.5-4.9); SGOT/AST 17 U/L (15-37); SGPT/ALT 16 U/L (13-61)
[2023-08-17 07:22] LABS: BILIRUBIN,TOTAL 1.3 mg/dL (0.2-1); TOT PROT 3.4 g/dl (6.4-8.2)
[2023-08-17 07:23] LABS: ALK PHOS 119 U/L (45-117)
[2023-08-17 07:30] LABS: HEMATOCRIT 24.2 % (35.4-49); HEMOGLOBIN 7.9 GM/dL (11.7-16.9); MCH 27.4 pg (25.7-33.7); MCHC 32.8 g/dl (32.0-35.9); MEAN CELL VOLUME 83.6 fl (80-96); MEAN PLT VOLUME 9.2 fl (7.5-11.1); RDW 16.6 % (11.9-15.9)
[2023-08-17 08:07] LABS: PLATELET COUNT 11 10^3/uL (134-434)
[2023-08-17 08:08] LABS: ANION GAP 7 mmol/L (4-13); CALCIUM 6.5 mg/dL (8.5-10.1); PLATELET COUNT 12 10^3/uL (134-434); POTASSIUM 2.6 mmol/L (3.5-5.1)
[2023-08-17] MEDS: KCL 20 MEQ PREMIX BAG 20 MEQ/100 ML INFUS.BAG IVPB SCH ×2 (09:31→18:22)
[2023-08-17] MEDS: CALCIUM GLUC IN NACL, ISO-OSM 1 GM/50 ML BAG IVPB ONE (09:37)
[2023-08-17 10:31] LABS: ANISOCYTOSIS 0; HELMET CELLS 0; HOWELL-JOLLY BODIES 0; MACROCYTOSIS 0; OVALOCYTE 0; ROULEAU 0; SICKELED CELLS 0; TARGET CELLS 0; TEAR DROP CELLS 0; TOXIC GRANULATION 0
[2023-08-17 16:35] LABS: CHLORIDE 106 mmol/L (98-107); SODIUM 144 mmol/L (136-145)
[2023-08-17 16:37] LABS: ALBUMIN 1.3 g/dl (3.4-5.0); BLOOD UREA NITROGEN 68.2 mg/dL (7-18); CALCIUM 7.1 mg/dL (8.5-10.1); CO2 28 mmol/L (21-32); GLUCOSE,RANDOM 100 mg/dL (74-106)
[2023-08-17 16:40] LABS: CREATININE 2.4 mg/dL (0.55-1.3); SGOT/AST 22 U/L (15-37); SGPT/ALT 15 U/L (13-61)
[2023-08-17 16:42] LABS: BILIRUBIN,TOTAL 1.1 mg/dL (0.2-1); TOT PROT 3.3 g/dl (6.4-8.2)
[2023-08-17 16:43] LABS: ALK PHOS 120 U/L (45-117)
[2023-08-17 16:47] LABS: ANION GAP 11 mmol/L (4-13); POTASSIUM 2.9 mmol/L (3.5-5.1)
[2023-08-17] MEDS: POTASSIUM CHLORIDE ORAL LIQUID 20 MEQ/15 ML PO ONE (17:44)
[2023-08-18 07:29] LABS: CHLORIDE 106 mmol/L (98-107); HEMATOCRIT 21.6 % (35.4-49); MCH 27.2 pg (25.7-33.7); MCHC 32.7 g/dl (32.0-35.9); MEAN CELL VOLUME 83.3 fl (80-96); MEAN PLT VOLUME 10.5 fl (7.5-11.1); POTASSIUM 3.2 mmol/L (3.5-5.1); RBC 2.59 M/mm3 (4.00-5.60); RDW 17.2 % (11.9-15.9); SODIUM 143 mmol/L (136-145)
[2023-08-18 07:32] LABS: BLOOD UREA NITROGEN 70.1 mg/dL (7-18); PLATELET COUNT 13 10^3/uL (134-434); WHITE BLOOD COUNT 34.5 K/mm3 (4.0-10.0)
[2023-08-18 07:33] LABS: ALBUMIN 1.3 g/dl (3.4-5.0); ANION GAP 6 mmol/L (4-13); CO2 31 mmol/L (21-32); GLUCOSE,RANDOM 104 mg/dL (74-106); MAGNESIUM 2.1 mg/dL (1.8-2.4)
[2023-08-18 07:36] LABS: CREATININE 2.4 mg/dL (0.55-1.3); PHOSPHOROUS 3.1 mg/dL (2.5-4.9); SGOT/AST 19 U/L (15-37); SGPT/ALT 12 U/L (13-61)
[2023-08-18 07:37] LABS: BILIRUBIN,TOTAL 1.3 mg/dL (0.2-1); TOT PROT 3.1 g/dl (6.4-8.2)
[2023-08-18 07:38] LABS: ALK PHOS 135 U/L (45-117)
[2023-08-18 07:44] LABS: CALCIUM 6.8 mg/dL (8.5-10.1)
[2023-08-18] MEDS: POTASSIUM CHLORIDE ORAL LIQUID 20 MEQ/15 ML PO ONE (08:40)
[2023-08-18 09:09] LABS: ANISOCYTOSIS 2+; MACROCYTOSIS 0
[2023-08-19 07:18] LABS: HEMATOCRIT 23.5 % (35.4-49); HEMOGLOBIN 7.5 GM/dL (11.7-16.9); MCH 27.1 pg (25.7-33.7); MCHC 31.9 g/dl (32.0-35.9); MEAN CELL VOLUME 85.1 fl (80-96); MEAN PLT VOLUME 12.1 fl (7.5-11.1); PLATELET COUNT 23 10^3/uL (134-434); RBC 2.76 M/mm3 (4.00-5.60); RDW 17.1 % (11.9-15.9)
[2023-08-19 07:28] LABS: WHITE BLOOD COUNT 38.1 K/mm3 (4.0-10.0)
[2023-08-19 07:33] LABS: CHLORIDE 108 mmol/L (98-107); SODIUM 143 mmol/L (136-145)
[2023-08-19 07:39] LABS: CO2 30 mmol/L (21-32); GLUCOSE,RANDOM 126 mg/dL (74-106); MAGNESIUM 2.1 mg/dL (1.8-2.4)
[2023-08-19 07:40] LABS: ALBUMIN 1.3 g/dl (3.4-5.0)
[2023-08-19 07:42] LABS: CREATININE 2.4 mg/dL (0.55-1.3); PHOSPHOROUS 3.6 mg/dL (2.5-4.9); SGPT/ALT 11 U/L (13-61)
[2023-08-19 07:43] LABS: SGOT/AST 24 U/L (15-37)
[2023-08-19 07:44] LABS: BILIRUBIN,TOTAL 0.9 mg/dL (0.2-1); TOT PROT 3.2 g/dl (6.4-8.2)
[2023-08-19 07:48] LABS: ALK PHOS 199 U/L (45-117); ANION GAP 5 mmol/L (4-13); CALCIUM 6.8 mg/dL (8.5-10.1); POTASSIUM 2.8 mmol/L (3.5-5.1)
[2023-08-19] MEDS: KCL 10 MEQ IVPB 10 MEQ/100 ML INFUS.BAG IVPB SCH (08:21)
[2023-08-19 08:55] LABS: ANISOCYTOSIS 3+; MACROCYTOSIS 0
[2023-08-19] MEDS: VANCOMYCIN/WATER FOR INJ (PEG) 1,000 MG/200 ML BAG IVPB ONE (12:23)
[2023-08-19] MEDS: KCL 20 MEQ PREMIX BAG 20 MEQ/100 ML INFUS.BAG IVPB SCH (12:42)
[2023-08-19] MEDS: LACTATED RINGERS SOLUTION 1000 ML INFUS.BAG IV ONE (14:00)
[2023-08-19] MEDS: LACTATED RINGERS SOLUTION 1,000 ML/1,000 ML INFUS.BAG IV SCH (14:11)
[2023-08-19] MEDS: HYDROCORTISONE SOD SUCCINATE 100 MG/2 ML VIAL IVPUSH SCH (16:33)
[2023-08-19 18:32] LABS: POTASSIUM 3.2 mmol/L (3.5-5.1)
[2023-08-19 18:34] LABS: ALBUMIN 1.3 g/dl (3.4-5.0); BLOOD UREA NITROGEN 79.7 mg/dL (7-18); CALCIUM 7.1 mg/dL (8.5-10.1)
[2023-08-19 18:39] LABS: BILIRUBIN,TOTAL 0.9 mg/dL (0.2-1); TOT PROT 3.3 g/dl (6.4-8.2)
[2023-08-19 18:40] LABS: CREATININE 2.3 mg/dL (0.55-1.3)
[2023-08-20 07:30] LABS: HEMATOCRIT 21.1 % (35.4-49); MCHC 31.7 g/dl (32.0-35.9); MEAN CELL VOLUME 85.3 fl (80-96); MEAN PLT VOLUME 12.3 fl (7.5-11.1); RBC 2.47 M/mm3 (4.00-5.60); RDW 16.8 % (11.9-15.9)
[2023-08-20 07:34] LABS: CHLORIDE 112 mmol/L (98-107); SODIUM 147 mmol/L (136-145)
[2023-08-20 07:38] LABS: ALBUMIN 1.2 g/dl (3.4-5.0)
[2023-08-20 07:39] LABS: BLOOD UREA NITROGEN 81.4 mg/dL (7-18); CO2 28 mmol/L (21-32); GLUCOSE,RANDOM 146 mg/dL (74-106)
[2023-08-20 07:42] LABS: CREATININE 2.2 mg/dL (0.55-1.3); PHOSPHOROUS 3.7 mg/dL (2.5-4.9); SGOT/AST 28 U/L (15-37); SGPT/ALT 13 U/L (13-61)
[2023-08-20 07:43] LABS: BILIRUBIN,TOTAL 0.8 mg/dL (0.2-1)
[2023-08-20 07:45] LABS: WHITE BLOOD COUNT 34.8 K/mm3 (4.0-10.0)
[2023-08-20 07:46] LABS: HEMOGLOBIN 6.7 GM/dL (11.7-16.9); PLATELET COUNT 31 10^3/uL (134-434)
[2023-08-20 07:47] LABS: ALK PHOS 330 U/L (45-117); ANION GAP 8 mmol/L (4-13); CALCIUM 6.9 mg/dL (8.5-10.1); POTASSIUM 2.7 mmol/L (3.5-5.1)
[2023-08-20] MEDS: POTASSIUM CHLORIDE ORAL LIQUID 20 MEQ/15 ML PO ONE ×2 (08:42→18:20)
[2023-08-20 09:06] LABS: ANISOCYTOSIS 1+; MACROCYTOSIS 1+
[2023-08-20] MEDS: KCL 10 MEQ IVPB 10 MEQ/100 ML INFUS.BAG IVPB SCH (16:30)
[2023-08-20 16:34] LABS: HEMATOCRIT 24.8 % (35.4-49); MCH 26.4 pg (25.7-33.7); MCHC 32.2 g/dl (32.0-35.9); MEAN CELL VOLUME 82.2 fl (80-96); MEAN PLT VOLUME 11.8 fl (7.5-11.1); RBC 3.02 M/mm3 (4.00-5.60)
[2023-08-20 16:42] LABS: PLATELET COUNT 34 10^3/uL (134-434); WHITE BLOOD COUNT 39.4 K/mm3 (4.0-10.0)
[2023-08-20 16:45] LABS: CHLORIDE 112 mmol/L (98-107); SODIUM 144 mmol/L (136-145)
[2023-08-20 16:48] LABS: ALBUMIN 1.2 g/dl (3.4-5.0); BLOOD UREA NITROGEN 81.5 mg/dL (7-18); CO2 28 mmol/L (21-32); GLUCOSE,RANDOM 127 mg/dL (74-106)
[2023-08-20 16:51] LABS: CREATININE 2.1 mg/dL (0.55-1.3); SGOT/AST 33 U/L (15-37); SGPT/ALT 12 U/L (13-61)
[2023-08-20 16:52] LABS: BILIRUBIN,TOTAL 0.8 mg/dL (0.2-1); TOT PROT 2.9 g/dl (6.4-8.2)
[2023-08-20 16:54] LABS: ALK PHOS 341 U/L (45-117)
[2023-08-20 17:00] LABS: ANION GAP 5 mmol/L (4-13); CALCIUM 6.6 mg/dL (8.5-10.1); POTASSIUM 2.9 mmol/L (3.5-5.1)
[2023-08-20] MEDS: HYDROCORTISONE SOD SUCCINATE 100 MG/2 ML VIAL IVPUSH SCH (21:04)
[2023-08-21 06:46] LABS: HEMOGLOBIN 8.2 GM/dL (11.7-16.9); MCH 26.7 pg (25.7-33.7); MCHC 32.7 g/dl (32.0-35.9); MEAN CELL VOLUME 81.8 fl (80-96); MEAN PLT VOLUME 12.5 fl (7.5-11.1); PLATELET COUNT 52 10^3/uL (134-434); RBC 3.06 M/mm3 (4.00-5.60); RDW 17.4 % (11.9-15.9)
[2023-08-21 06:51] LABS: CHLORIDE 113 mmol/L (98-107); POTASSIUM 3.3 mmol/L (3.5-5.1); SODIUM 145 mmol/L (136-145)
[2023-08-21 06:57] LABS: ALBUMIN 1.3 g/dl (3.4-5.0); ANION GAP 2 mmol/L (4-13); BLOOD UREA NITROGEN 79.3 mg/dL (7-18); CO2 29 mmol/L (21-32); GLUCOSE,RANDOM 122 mg/dL (74-106); MAGNESIUM 1.8 mg/dL (1.8-2.4)
[2023-08-21 06:59] LABS: SGOT/AST 40 U/L (15-37); SGPT/ALT 14 U/L (13-61); WHITE BLOOD COUNT 40.4 K/mm3 (4.0-10.0)
[2023-08-21 07:00] LABS: PHOSPHOROUS 3.4 mg/dL (2.5-4.9)
[2023-08-21 07:01] LABS: TOT PROT 3.1 g/dl (6.4-8.2)
[2023-08-21 07:03] LABS: ALK PHOS 421 U/L (45-117); CALCIUM 6.3 mg/dL (8.5-10.1)
[2023-08-21] MEDS: POTASSIUM CHLORIDE ORAL LIQUID 20 MEQ/15 ML PO ONE (09:00)
[2023-08-21 09:09] LABS: ANISOCYTOSIS 3+; MACROCYTOSIS 0
[2023-08-21] MEDS: KCL 20 MEQ PREMIX BAG 20 MEQ/100 ML INFUS.BAG IVPB SCH (09:28)
[2023-08-22 07:46] LABS: HEMATOCRIT 25.2 % (35.4-49); HEMOGLOBIN 8.3 GM/dL (11.7-16.9); MCH 27.1 pg (25.7-33.7); MCHC 32.8 g/dl (32.0-35.9); MEAN CELL VOLUME 82.7 fl (80-96); MEAN PLT VOLUME 11.7 fl (7.5-11.1); PLATELET COUNT 64 10^3/uL (134-434); RBC 3.04 M/mm3 (4.00-5.60); RDW 16.8 % (11.9-15.9)
[2023-08-22 07:57] LABS: CHLORIDE 114 mmol/L (98-107); POTASSIUM 3.4 mmol/L (3.5-5.1); SODIUM 149 mmol/L (136-145)
[2023-08-22 08:01] LABS: ALBUMIN 1.3 g/dl (3.4-5.0); ANION GAP 5 mmol/L (4-13); BLOOD UREA NITROGEN 76.1 mg/dL (7-18); CO2 30 mmol/L (21-32); GLUCOSE,RANDOM 104 mg/dL (74-106); MAGNESIUM 1.9 mg/dL (1.8-2.4); WHITE BLOOD COUNT 34.4 K/mm3 (4.0-10.0)
[2023-08-22 08:04] LABS: CREATININE 1.8 mg/dL (0.55-1.3); PHOSPHOROUS 3.8 mg/dL (2.5-4.9); SGOT/AST 53 U/L (15-37); SGPT/ALT 17 U/L (13-61)
[2023-08-22 08:06] LABS: BILIRUBIN,TOTAL 0.8 mg/dL (0.2-1); TOT PROT 3.3 g/dl (6.4-8.2)
[2023-08-22 08:07] LABS: ALK PHOS 447 U/L (45-117)
[2023-08-22 08:09] LABS: CALCIUM 6.8 mg/dL (8.5-10.1)
[2023-08-22] MEDS: POTASSIUM CHLORIDE ORAL LIQUID 20 MEQ/15 ML NGT ONE (10:06)
[2023-08-23 07:14] LABS: CHLORIDE 117 mmol/L (98-107); POTASSIUM 3.3 mmol/L (3.5-5.1); SODIUM 151 mmol/L (136-145)
[2023-08-23 07:15] LABS: HEMATOCRIT 24.2 % (35.4-49); HEMOGLOBIN 7.8 GM/dL (11.7-16.9); MCH 27.2 pg (25.7-33.7); MCHC 32.4 g/dl (32.0-35.9); MEAN CELL VOLUME 83.9 fl (80-96); MEAN PLT VOLUME 11.1 fl (7.5-11.1); PLATELET COUNT 70 10^3/uL (134-434); RBC 2.88 M/mm3 (4.00-5.60); RDW 17.1 % (11.9-15.9); WHITE BLOOD COUNT 26.1 K/mm3 (4.0-10.0)
[2023-08-23 07:17] LABS: ALBUMIN 1.2 g/dl (3.4-5.0); ANION GAP 5 mmol/L (4-13); BLOOD UREA NITROGEN 76.7 mg/dL (7-18); CO2 29 mmol/L (21-32); GLUCOSE,RANDOM 139 mg/dL (74-106); MAGNESIUM 1.9 mg/dL (1.8-2.4)
[2023-08-23 07:20] LABS: CREATININE 1.6 mg/dL (0.55-1.3); PHOSPHOROUS 3.5 mg/dL (2.5-4.9); SGOT/AST 64 U/L (15-37); SGPT/ALT 25 U/L (13-61)
[2023-08-23 07:22] LABS: BILIRUBIN,TOTAL 0.6 mg/dL (0.2-1); TOT PROT 3.2 g/dl (6.4-8.2)
[2023-08-23 07:41] LABS: ALK PHOS 516 U/L (45-117); CALCIUM 6.8 mg/dL (8.5-10.1)
[2023-08-23] MEDS: KCL 20 MEQ PREMIX BAG 20 MEQ/100 ML INFUS.BAG IVPB SCH (09:28)
[2023-08-23] MEDS: HYDROCORTISONE SOD SUCCINATE 100 MG/2 ML VIAL IVPUSH SCH (09:29)
[2023-08-24 07:23] LABS: POTASSIUM 3.9 mmol/L (3.5-5.1)
[2023-08-24 07:25] LABS: ALBUMIN 1.2 g/dl (3.4-5.0); BLOOD UREA NITROGEN 65.9 mg/dL (7-18); MAGNESIUM 1.9 mg/dL (1.8-2.4)
[2023-08-24 07:28] LABS: CREATININE 1.5 mg/dL (0.55-1.3); PHOSPHOROUS 3.7 mg/dL (2.5-4.9)
[2023-08-24 07:30] LABS: BILIRUBIN,TOTAL 0.5 mg/dL (0.2-1); TOT PROT 3.3 g/dl (6.4-8.2)
[2023-08-24 07:31] LABS: HEMATOCRIT 27.1 % (35.4-49); HEMOGLOBIN 8.5 GM/dL (11.7-16.9); MCHC 31.5 g/dl (32.0-35.9); MEAN CELL VOLUME 85.7 fl (80-96); PLATELET COUNT 90 10^3/uL (134-434); RBC 3.16 M/mm3 (4.00-5.60); RDW 17.1 % (11.9-15.9); WHITE BLOOD COUNT 27.3 K/mm3 (4.0-10.0)
[2023-08-24] MEDS: DEXTROSE 5%-WATER - 1,000 ML IV SCH (09:14)
[2023-08-24] MEDS: ACETYLCYSTEINE 20% 200MG/ML 4 ML VIAL *FOR ORAL / INH USE ONLY NEB SCH (09:29)
[2023-08-24 09:46] LABS: ANISOCYTOSIS 0; MACROCYTOSIS 0
[2023-08-24] MEDS: ALBUTEROL SO4 0.083% IH SOL 2.5 MG/3 ML VIAL.NEB. NEB SCH (11:38)
[2023-08-24] MEDS ORDERED: ACETYLCYSTEINE 20% 200MG/ML 4 ML VIAL *FOR ORAL / INH USE ONLY NEB SCH (12:00)
[2023-08-24] MEDS: ACETAMINOPHEN 1000 MG/100 ML BAG IVPB PRN (22:27)
[2023-08-25 06:57] LABS: HEMATOCRIT 23.1 % (35.4-49); HEMOGLOBIN 7.3 GM/dL (11.7-16.9); MCHC 31.6 g/dl (32.0-35.9); MEAN CELL VOLUME 85.4 fl (80-96); MEAN PLT VOLUME 10.7 fl (7.5-11.1); PLATELET COUNT 107 10^3/uL (134-434); RDW 17.1 % (11.9-15.9); WHITE BLOOD COUNT 24.1 K/mm3 (4.0-10.0)
[2023-08-25 07:07] LABS: CHLORIDE 113 mmol/L (98-107); POTASSIUM 3.3 mmol/L (3.5-5.1); SODIUM 147 mmol/L (136-145)
[2023-08-25 07:11] LABS: ANION GAP 7 mmol/L (4-13); CO2 27 mmol/L (21-32)
[2023-08-25 07:12] LABS: ALBUMIN 1.2 g/dl (3.4-5.0); GLUCOSE,RANDOM 227 mg/dL (74-106); MAGNESIUM 1.8 mg/dL (1.8-2.4)
[2023-08-25 07:14] LABS: SGOT/AST 73 U/L (15-37)
[2023-08-25 07:15] LABS: CREATININE 1.3 mg/dL (0.55-1.3); PHOSPHOROUS 3.7 mg/dL (2.5-4.9); SGPT/ALT 30 U/L (13-61)
[2023-08-25 07:16] LABS: BILIRUBIN,TOTAL 0.5 mg/dL (0.2-1); TOT PROT 3.4 g/dl (6.4-8.2)
[2023-08-25 07:17] LABS: BLOOD UREA NITROGEN 58.4 mg/dL (7-18)
[2023-08-25 07:26] LABS: ALK PHOS 504 U/L (45-117); CALCIUM 6.7 mg/dL (8.5-10.1)
[2023-08-25] MEDS: HYDROCORTISONE SOD SUCCINATE 100 MG/2 ML VIAL IVPUSH SCH (09:01)
[2023-08-25] MEDS: POTASSIUM CHLORIDE ORAL LIQUID 20 MEQ/15 ML PO ONE (09:01)
[2023-08-25 09:50] LABS: ANISOCYTOSIS 0; HELMET CELLS 0; HOWELL-JOLLY BODIES 0; MACROCYTOSIS 0; OVALOCYTE 0; ROULEAU 0; SICKELED CELLS 0; TARGET CELLS 0; TEAR DROP CELLS 0; TOXIC GRANULATION 0
[2023-08-25] MEDS: POTASSIUM CHLORIDE TABS 20 MEQ TABLET.ER (FP) PO ONE (10:06)
[2023-08-25] MEDS ORDERED: DEXTROSE 5%-WATER - 1,000 ML with POTASSIUM CHLORIDE 10 MEQ IV SCH (15:00)
[2023-08-25] MEDS: POTASSIUM CHLORIDE 10 MEQ in DEXTROSE 5%-WATER - 1,000 ML IV SCH (18:02)
[2023-08-26 06:48] LABS: HEMATOCRIT 21.8 % (35.4-49); MCH 27.3 pg (25.7-33.7); MCHC 32.2 g/dl (32.0-35.9); MEAN PLT VOLUME 10.7 fl (7.5-11.1); PLATELET COUNT 91 10^3/uL (134-434); RBC 2.57 M/mm3 (4.00-5.60); RDW 17.2 % (11.9-15.9); WHITE BLOOD COUNT 20.2 K/mm3 (4.0-10.0)
[2023-08-26 07:03] LABS: POTASSIUM 3.4 mmol/L (3.5-5.1)
[2023-08-26 07:04] LABS: INR 1.16 (0.83-1.09); PROTHROMBIN TIME (PATIENT) 13.1 SEC (9.7-13.0)
[2023-08-26 07:08] LABS: CALCIUM 7.1 mg/dL (8.5-10.1)
[2023-08-26 07:09] LABS: ALBUMIN 1.2 g/dl (3.4-5.0); MAGNESIUM 1.7 mg/dL (1.8-2.4)
[2023-08-26 07:12] LABS: CREATININE 1.1 mg/dL (0.55-1.3); PHOSPHOROUS 3.6 mg/dL (2.5-4.9)
[2023-08-26 07:14] LABS: BILIRUBIN,TOTAL 0.5 mg/dL (0.2-1); TOT PROT 3.4 g/dl (6.4-8.2)
[2023-08-26] MEDS: MAGNESIUM 2GM/50ML STERILE WATER IVPB IVPB ONE (08:59)
[2023-08-26] MEDS: KCL 10 MEQ IVPB 10 MEQ/100 ML INFUS.BAG IVPB SCH (09:41)
[2023-08-26] MEDS: PHYTONADIONE 5 MG TABLET PO ONE (16:16)
[2023-08-27 06:41] LABS: HEMATOCRIT 18.8 % (35.4-49); MCH 28.1 pg (25.7-33.7); MCHC 33.4 g/dl (32.0-35.9); MEAN PLT VOLUME 10.4 fl (7.5-11.1); PLATELET COUNT 83 10^3/uL (134-434); RBC 2.24 M/mm3 (4.00-5.60); RDW 17.4 % (11.9-15.9); WHITE BLOOD COUNT 12.8 K/mm3 (4.0-10.0)
[2023-08-27 06:51] LABS: HEMOGLOBIN 6.3 GM/dL (11.7-16.9)
[2023-08-27 06:53] LABS: INR 1.16 (0.83-1.09)
[2023-08-27 06:55] LABS: ACTIVATED PTT 29.5 SECONDS (25.2-36.5)
[2023-08-27 06:59] LABS: CHLORIDE 115 mmol/L (98-107); POTASSIUM 3.1 mmol/L (3.5-5.1); SODIUM 149 mmol/L (136-145)
[2023-08-27 07:02] LABS: ALBUMIN 1.1 g/dl (3.4-5.0); ANION GAP 3 mmol/L (4-13); BLOOD UREA NITROGEN 41.8 mg/dL (7-18); CO2 31 mmol/L (21-32); GLUCOSE,RANDOM 78 mg/dL (74-106); MAGNESIUM 1.8 mg/dL (1.8-2.4)
[2023-08-27 07:05] LABS: CREATININE 0.9 mg/dL (0.55-1.3); PHOSPHOROUS 3.2 mg/dL (2.5-4.9); SGOT/AST 77 U/L (15-37); SGPT/ALT 20 U/L (13-61)
[2023-08-27 07:06] LABS: BILIRUBIN,TOTAL 0.4 mg/dL (0.2-1); TOT PROT 3.1 g/dl (6.4-8.2)
[2023-08-27 07:24] LABS: ALK PHOS 406 U/L (45-117); CALCIUM 6.8 mg/dL (8.5-10.1)
[2023-08-27] MEDS: MAGNESIUM 1GM/D5W 100ML - 100 ML IVPB IVPB ONE (11:35)
[2023-08-27] MEDS: POTASSIUM CHLORIDE ORAL LIQUID 20 MEQ/15 ML PO ONE (11:45)
[2023-08-27 22:29] LABS: HEMATOCRIT 25.6 % (35.4-49); HEMOGLOBIN 8.2 GM/dL (11.7-16.9); MCH 28.8 pg (25.7-33.7); MCHC 32.2 g/dl (32.0-35.9); MEAN CELL VOLUME 89.3 fl (80-96); MEAN PLT VOLUME 10.4 fl (7.5-11.1); PLATELET COUNT 61 10^3/uL (134-434); RBC 2.87 M/mm3 (4.00-5.60); RDW 16.3 % (11.9-15.9); WHITE BLOOD COUNT 16.5 K/mm3 (4.0-10.0)
[2023-08-28 06:34] LABS: HEMOGLOBIN 9.6 GM/dL (11.7-16.9); MCH 28.5 pg (25.7-33.7); MCHC 34.2 g/dl (32.0-35.9); MEAN CELL VOLUME 83.4 fl (80-96); MEAN PLT VOLUME 10.1 fl (7.5-11.1); PLATELET COUNT 73 10^3/uL (134-434); RBC 3.36 M/mm3 (4.00-5.60); RDW 15.8 % (11.9-15.9); WHITE BLOOD COUNT 15.3 K/mm3 (4.0-10.0)
[2023-08-28 06:45] LABS: CHLORIDE 113 mmol/L (98-107); POTASSIUM 3.7 mmol/L (3.5-5.1); SODIUM 143 mmol/L (136-145)
[2023-08-28 06:53] LABS: ANION GAP 0 mmol/L (4-13); BLOOD UREA NITROGEN 36.1 mg/dL (7-18); CO2 30 mmol/L (21-32)
[2023-08-28 06:54] LABS: ALBUMIN 1.2 g/dl (3.4-5.0); GLUCOSE,RANDOM 88 mg/dL (74-106); MAGNESIUM 1.8 mg/dL (1.8-2.4)
[2023-08-28 06:57] LABS: CREATININE 0.9 mg/dL (0.55-1.3); PHOSPHOROUS 3.3 mg/dL (2.5-4.9); SGOT/AST 84 U/L (15-37); SGPT/ALT 23 U/L (13-61); TOT PROT 3.3 g/dl (6.4-8.2)
[2023-08-28 06:59] LABS: ALK PHOS 420 U/L (45-117); BILIRUBIN,TOTAL 0.6 mg/dL (0.2-1)
[2023-08-28 07:03] LABS: CALCIUM 6.9 mg/dL (8.5-10.1)
[2023-08-28 08:36] LABS: INR 1.09 (0.83-1.09); PROTHROMBIN TIME (PATIENT) 12.3 SEC (9.7-13.0)
[2023-08-28] MEDS ORDERED: morphine CARPU-JECT 4 MG/1 ML DISP.SYRIN IVPUSH ONE (11:48)
[2023-08-28] MEDS: ROCURONIUM BROMIDE 50 MG/5 ML VIAL IV ONE (12:59)
[2023-08-28] MEDS: morphine SULFATE 4 MG/ML VIAL IVPUSH ONE (13:00)
[2023-08-29 06:40] LABS: HEMATOCRIT 25.2 % (35.4-49); HEMOGLOBIN 8.4 GM/dL (11.7-16.9); MCH 28.2 pg (25.7-33.7); MCHC 33.3 g/dl (32.0-35.9); MEAN CELL VOLUME 84.6 fl (80-96); MEAN PLT VOLUME 9.4 fl (7.5-11.1); PLATELET COUNT 80 10^3/uL (134-434); RBC 2.98 M/mm3 (4.00-5.60); RDW 15.9 % (11.9-15.9); WHITE BLOOD COUNT 14.3 K/mm3 (4.0-10.0)
[2023-08-29 06:58] LABS: CHLORIDE 114 mmol/L (98-107); POTASSIUM 3.2 mmol/L (3.5-5.1); SODIUM 147 mmol/L (136-145)
[2023-08-29 07:01] LABS: ALBUMIN 1.2 g/dl (3.4-5.0); ANION GAP 4 mmol/L (4-13); BLOOD UREA NITROGEN 31.1 mg/dL (7-18); CO2 29 mmol/L (21-32); GLUCOSE,RANDOM 87 mg/dL (74-106); MAGNESIUM 1.7 mg/dL (1.8-2.4)
[2023-08-29 07:04] LABS: CREATININE 0.8 mg/dL (0.55-1.3); PHOSPHOROUS 3.2 mg/dL (2.5-4.9); SGOT/AST 66 U/L (15-37); SGPT/ALT 18 U/L (13-61)
[2023-08-29 07:06] LABS: BILIRUBIN,TOTAL 0.6 mg/dL (0.2-1); TOT PROT 3.1 g/dl (6.4-8.2)
[2023-08-29 07:11] LABS: ALK PHOS 307 U/L (45-117); CALCIUM 6.8 mg/dL (8.5-10.1)
[2023-08-29] MEDS: MAGNESIUM 2GM/50ML STERILE WATER IVPB IVPB ONE (07:46)
[2023-08-29] MEDS: POTASSIUM CHLORIDE ORAL LIQUID 20 MEQ/15 ML PO ONE (07:46)
[2023-08-29] MEDS ORDERED: ACETAMINOPHEN 1000 MG/100 ML BAG IVPB PRN (18:39)
[2023-08-29] MEDS ORDERED: TRIPLE LUMEN FLUSH 4 ML ML IVPUSH PRN (18:39)
[2023-08-29] MEDS: ALBUTEROL SO4 0.083% IH SOL 2.5 MG/3 ML VIAL.NEB. NEB SCH (19:30)
[2023-08-29] MEDS: CHLORHEXIDINE GLUCONATE 4% CLEANSER FOR DECOLONIZATION TP SCH (21:23)
[2023-08-29] MEDS: PANTOPRAZOLE SODIUM 40 MG VIAL IVPUSH SCH (21:23)
[2023-08-29] MEDS: ARTIFICIAL TEARS OPHTHALMIC DROPS OU SCH (22:25)
[2023-08-29] MEDS: POTASSIUM CHLORIDE 10 MEQ in DEXTROSE 5%-WATER - 1,000 ML IV SCH (22:35)
[2023-08-30 05:50] LABS: HEMATOCRIT 25.3 % (35.4-49); HEMOGLOBIN 8.5 GM/dL (11.7-16.9); MCH 28.3 pg (25.7-33.7); MCHC 33.6 g/dl (32.0-35.9); MEAN CELL VOLUME 84.3 fl (80-96); MEAN PLT VOLUME 8.8 fl (7.5-11.1); PLATELET COUNT 70 10^3/uL (134-434); RDW 15.9 % (11.9-15.9)
[2023-08-30 06:15] LABS: CHLORIDE 112 mmol/L (98-107); POTASSIUM 3.4 mmol/L (3.5-5.1); SODIUM 145 mmol/L (136-145)
[2023-08-30 06:16] LABS: ALBUMIN 1.2 g/dl (3.4-5.0); ANION GAP 3 mmol/L (4-13); CO2 30 mmol/L (21-32); GLUCOSE,RANDOM 95 mg/dL (74-106); MAGNESIUM 1.8 mg/dL (1.8-2.4)
[2023-08-30 06:18] LABS: BLOOD UREA NITROGEN 25.8 mg/dL (7-18)
[2023-08-30 06:19] LABS: CREATININE 0.8 mg/dL (0.55-1.3); PHOSPHOROUS 2.9 mg/dL (2.5-4.9)
[2023-08-30 06:20] LABS: SGOT/AST 65 U/L (15-37); SGPT/ALT 21 U/L (13-61)
[2023-08-30 06:22] LABS: BILIRUBIN,TOTAL 0.6 mg/dL (0.2-1); TOT PROT 3.4 g/dl (6.4-8.2)
[2023-08-30 06:35] LABS: ALK PHOS 360 U/L (45-117); CALCIUM 6.7 mg/dL (8.5-10.1)
[2023-08-30] MEDS: KCL 10 MEQ IVPB 10 MEQ/100 ML INFUS.BAG IVPB SCH (12:58)
[2023-08-31 08:15] LABS: HEMOGLOBIN 9.2 GM/dL (11.7-16.9); MCH 29.1 pg (25.7-33.7); MEAN CELL VOLUME 85.4 fl (80-96); MEAN PLT VOLUME 9.5 fl (7.5-11.1); PLATELET COUNT 66 10^3/uL (134-434); RBC 3.17 M/mm3 (4.00-5.60); RDW 16.5 % (11.9-15.9); WHITE BLOOD COUNT 16.6 K/mm3 (4.0-10.0)
[2023-08-31 08:28] LABS: POTASSIUM 3.4 mmol/L (3.5-5.1)
[2023-08-31 08:32] LABS: ALBUMIN 1.2 g/dl (3.4-5.0); BLOOD UREA NITROGEN 22.7 mg/dL (7-18)
[2023-08-31 08:34] LABS: MAGNESIUM 1.7 mg/dL (1.8-2.4)
[2023-08-31 08:36] LABS: BILIRUBIN,DIRECT 0.2 mg/dL (0.0-0.2); CREATININE 0.7 mg/dL (0.55-1.3); PHOSPHOROUS 2.8 mg/dL (2.5-4.9)
[2023-08-31 08:38] LABS: BILIRUBIN,TOTAL 0.6 mg/dL (0.2-1); TOT PROT 3.8 g/dl (6.4-8.2)
[2023-08-31 09:01] LABS: ANISOCYTOSIS 0; HELMET CELLS 0; HOWELL-JOLLY BODIES 0; MACROCYTOSIS 0; OVALOCYTE 0; ROULEAU 0; SICKELED CELLS 0; TARGET CELLS 0; TEAR DROP CELLS 0; TOXIC GRANULATION 0
[2023-08-31] MEDS: KCL 10 MEQ IVPB 10 MEQ/100 ML INFUS.BAG IVPB SCH (13:00)
[2023-08-31] MEDS: MAGNESIUM SULF 50% (8.12 MEQ/2 ML-1 GM VIAL) IVPB ONE (13:16)
[2023-09-01 06:32] LABS: HEMATOCRIT 25.3 % (35.4-49); HEMOGLOBIN 8.5 GM/dL (11.7-16.9); MCH 28.6 pg (25.7-33.7); MCHC 33.5 g/dl (32.0-35.9); MEAN CELL VOLUME 85.5 fl (80-96); MEAN PLT VOLUME 9.2 fl (7.5-11.1); PLATELET COUNT 59 10^3/uL (134-434); RBC 2.96 M/mm3 (4.00-5.60); RDW 16.2 % (11.9-15.9); WHITE BLOOD COUNT 24.9 K/mm3 (4.0-10.0)
[2023-09-01 06:51] LABS: ALBUMIN 1.2 g/dl (3.4-5.0); BILIRUBIN,DIRECT 0.2 mg/dL (0.0-0.2); BILIRUBIN,TOTAL 0.5 mg/dL (0.2-1); BLOOD UREA NITROGEN 21.7 mg/dL (7-18); CALCIUM 7.2 mg/dL (8.5-10.1); CREATININE 0.9 mg/dL (0.55-1.3); MAGNESIUM 1.9 mg/dL (1.8-2.4); PHOSPHOROUS 2.8 mg/dL (2.5-4.9); POTASSIUM 3.3 mmol/L (3.5-5.1); TOT PROT 3.6 g/dl (6.4-8.2)
[2023-09-01] MEDS: KCL 10 MEQ IVPB 10 MEQ/100 ML INFUS.BAG IVPB SCH (07:46)
[2023-09-01 09:21] LABS: ANISOCYTOSIS 0; HELMET CELLS 0; HOWELL-JOLLY BODIES 0; MACROCYTOSIS 0; OVALOCYTE 0; ROULEAU 0; SICKELED CELLS 0; TARGET CELLS 0; TEAR DROP CELLS 0; TOXIC GRANULATION 0
[2023-09-01] MEDS ORDERED: TRIPLE LUMEN FLUSH 4 ML ML IVPUSH PRN (11:54)
[2023-09-01] MEDS ORDERED: ACETAMINOPHEN 1000 MG/100 ML BAG IVPB PRN (11:54)
[2023-09-01] MEDS: ALBUTEROL SO4 0.083% IH SOL 2.5 MG/3 ML VIAL.NEB. NEB SCH (12:12)
[2023-09-01] MEDS: POTASSIUM CHLORIDE 10 MEQ in DEXTROSE 5%-WATER - 1,000 ML IV SCH (19:08)
[2023-09-01] MEDS: PANTOPRAZOLE SODIUM 40 MG VIAL IVPUSH SCH (21:20)
[2023-09-01] MEDS ORDERED: CHLORHEXIDINE GLUCONATE 4% CLEANSER FOR DECOLONIZATION TP SCH (22:00)
[2023-09-01] MEDS: ARTIFICIAL TEARS OPHTHALMIC DROPS OU SCH (22:05)
[2023-09-02 09:12] LABS: HEMATOCRIT 23.2 % (35.4-49); HEMOGLOBIN 7.7 GM/dL (11.7-16.9); MCH 28.3 pg (25.7-33.7); MEAN CELL VOLUME 85.7 fl (80-96); MEAN PLT VOLUME 9.1 fl (7.5-11.1); PLATELET COUNT 52 10^3/uL (134-434); RBC 2.71 M/mm3 (4.00-5.60); RDW 16.4 % (11.9-15.9); WHITE BLOOD COUNT 16.1 K/mm3 (4.0-10.0)
[2023-09-02 09:27] LABS: CHLORIDE 109 mmol/L (98-107); POTASSIUM 3.1 mmol/L (3.5-5.1); SODIUM 141 mmol/L (136-145)
[2023-09-02 09:32] LABS: ANION GAP 6 mmol/L (4-13); BLOOD UREA NITROGEN 22.9 mg/dL (7-18); CO2 26 mmol/L (21-32); GLUCOSE,RANDOM 116 mg/dL (74-106)
[2023-09-02 09:34] LABS: CREATININE 0.7 mg/dL (0.55-1.3); MAGNESIUM 1.7 mg/dL (1.8-2.4); SGOT/AST 52 U/L (15-37); SGPT/ALT 18 U/L (13-61)
[2023-09-02 09:36] LABS: BILIRUBIN,TOTAL 0.8 mg/dL (0.2-1); TOT PROT 3.4 g/dl (6.4-8.2)
[2023-09-02 09:38] LABS: ALK PHOS 306 U/L (45-117); CALCIUM 6.9 mg/dL (8.5-10.1)
[2023-09-02] MEDS: MAGNESIUM 1GM/D5W 100ML - 100 ML IVPB IVPB ONE (12:15)
[2023-09-02] MEDS: KCL 10 MEQ IVPB 10 MEQ/100 ML INFUS.BAG IVPB SCH (14:02)
[2023-09-02] MEDS: ALBUTEROL SO4 0.083% IH SOL 2.5 MG/3 ML VIAL.NEB. NEB PRN (20:10)
[2023-09-03] MEDS: PANTOPRAZOLE SODIUM 40 MG VIAL IVPUSH SCH (10:37)
[2023-09-03] MEDS ORDERED: GLUCAGON 1 MG KIT ONE (10:39)
[2023-09-03 10:42] LABS: HEMATOCRIT 24.2 % (35.4-49); HEMOGLOBIN 8.1 GM/dL (11.7-16.9); MCH 28.6 pg (25.7-33.7); MCHC 33.5 g/dl (32.0-35.9); MEAN CELL VOLUME 85.3 fl (80-96); MEAN PLT VOLUME 9.1 fl (7.5-11.1); PLATELET COUNT 58 10^3/uL (134-434); RBC 2.84 M/mm3 (4.00-5.60); RDW 16.4 % (11.9-15.9); WHITE BLOOD COUNT 11.6 K/mm3 (4.0-10.0)
[2023-09-03 11:04] LABS: POTASSIUM 3.3 mmol/L (3.5-5.1)
[2023-09-03 11:05] LABS: CALCIUM 7.1 mg/dL (8.5-10.1)
[2023-09-03 11:06] LABS: BLOOD UREA NITROGEN 19.6 mg/dL (7-18)
[2023-09-03 11:09] LABS: CREATININE 0.6 mg/dL (0.55-1.3)
[2023-09-03] MEDS: GLUCAGON 1 MG KIT IVPUSH ONE (11:50)
[2023-09-03] MEDS ORDERED: KCL 10 MEQ IVPB 10 MEQ/100 ML INFUS.BAG IVPB SCH (12:00)
[2023-09-03] MEDS: KCL 10 MEQ IVPB 10 MEQ/100 ML INFUS.BAG IVPB SCH (21:55)
[2023-09-04] MEDS: DEXTROSE 5%-NORMAL SALINE 1,000 ML IV SCH (01:38)
[2023-09-04 09:33] LABS: HEMATOCRIT 23.3 % (35.4-49); HEMOGLOBIN 7.7 GM/dL (11.7-16.9); MCH 28.4 pg (25.7-33.7); MCHC 33.1 g/dl (32.0-35.9); MEAN CELL VOLUME 85.8 fl (80-96); MEAN PLT VOLUME 9.3 fl (7.5-11.1); PLATELET COUNT 72 10^3/uL (134-434); RBC 2.72 M/mm3 (4.00-5.60); RDW 15.8 % (11.9-15.9); WHITE BLOOD COUNT 18.4 K/mm3 (4.0-10.0)
[2023-09-04 09:46] LABS: POTASSIUM 3.5 mmol/L (3.5-5.1)
[2023-09-04 10:08] LABS: CALCIUM 7.1 mg/dL (8.5-10.1)
[2023-09-04 10:09] LABS: BLOOD UREA NITROGEN 19.1 mg/dL (7-18)
[2023-09-04 10:12] LABS: CREATININE 0.5 mg/dL (0.55-1.3)
[2023-09-05] MEDS ORDERED: ZINC SULFATE 220 MG CAPSULE (FP) PO SCH (14:15)
[2023-09-05] MEDS: MULTIVIT-MINERALS ORAL LIQUID PEG SCH (16:11)
[2023-09-05] MEDS: COLLAGENASE CLOSTRIDIUM HIST. 30 GRAMS TUBE TP SCH (18:36)
[2023-09-05] MEDS: ASCORBIC ACID 500 MG/5 ML UNIT DOSE CUP PEG SCH (21:43)
[2023-09-06] MEDS: ZINC SULFATE 220 MG CAPSULE (FP) GT SCH (09:28)
[2023-09-06 10:00] LABS: CHLORIDE 112 mmol/L (98-107); SODIUM 146 mmol/L (136-145)
[2023-09-06 10:10] LABS: CALCIUM 7.2 mg/dL (8.5-10.1)
[2023-09-06 10:11] LABS: ALBUMIN 1.2 g/dl (3.4-5.0); BLOOD UREA NITROGEN 19.8 mg/dL (7-18); CO2 27 mmol/L (21-32); GLUCOSE,RANDOM 148 mg/dL (74-106); MAGNESIUM 1.8 mg/dL (1.8-2.4)
[2023-09-06 10:12] LABS: SGPT/ALT 19 U/L (13-61)
[2023-09-06 10:13] LABS: PHOSPHOROUS 3.1 mg/dL (2.5-4.9)
[2023-09-06 10:14] LABS: BILIRUBIN,TOTAL 0.4 mg/dL (0.2-1); CREATININE 0.7 mg/dL (0.55-1.3); SGOT/AST 44 U/L (15-37); TOT PROT 3.8 g/dl (6.4-8.2)
[2023-09-06 10:15] LABS: ALK PHOS 279 U/L (45-117)
[2023-09-06 10:19] LABS: BASO % 0.1 % (0-2.0); EOS % 0.2 % (0-4.5); HEMATOCRIT 23.7 % (35.4-49); HEMOGLOBIN 8.1 GM/dL (11.7-16.9); LYMPH % 5.9 % (8-40); MCH 28.7 pg (25.7-33.7); MEAN CELL VOLUME 84.5 fl (80-96); MEAN PLT VOLUME 9.3 fl (7.5-11.1); MONO % 3.3 % (3.8-10.2); NEUT % 90.5 % (42.8-82.8); PLATELET COUNT 138 10^3/uL (134-434); RBC 2.81 M/mm3 (4.00-5.60); RDW 16.6 % (11.9-15.9); WHITE BLOOD COUNT 19.1 K/mm3 (4.0-10.0)
[2023-09-06 10:21] LABS: ANION GAP 6 mmol/L (4-13); POTASSIUM 2.9 mmol/L (3.5-5.1)
[2023-09-06] MEDS: KCL 10 MEQ IVPB 10 MEQ/100 ML INFUS.BAG IVPB SCH (11:00)
[2023-09-06] MEDS: LACTOBACILLUS ACIDOPHILUS 1 TABLET GT SCH (12:15)
[2023-09-06] MEDS: POTASSIUM CHLORIDE ORAL LIQUID 20 MEQ/15 ML GT ONE (12:15)
[2023-09-06] MEDS: BANATROL PLUS POWDER PACKET GT SCH (22:28)
[2023-09-07 09:30] LABS: HEMATOCRIT 20.8 % (35.4-49); HEMOGLOBIN 7.1 GM/dL (11.7-16.9); MCH 29.1 pg (25.7-33.7); MCHC 34.3 g/dl (32.0-35.9); MEAN CELL VOLUME 84.9 fl (80-96); MEAN PLT VOLUME 9.1 fl (7.5-11.1); PLATELET COUNT 152 10^3/uL (134-434); RBC 2.45 M/mm3 (4.00-5.60); RDW 16.4 % (11.9-15.9)
[2023-09-07 09:51] LABS: POTASSIUM 3.5 mmol/L (3.5-5.1)
[2023-09-07 10:02] LABS: BLOOD UREA NITROGEN 19.4 mg/dL (7-18); CALCIUM 7.2 mg/dL (8.5-10.1); MAGNESIUM 1.7 mg/dL (1.8-2.4)
[2023-09-07 10:06] LABS: CREATININE 0.6 mg/dL (0.55-1.3)
[2023-09-07 10:07] LABS: PHOSPHOROUS 2.9 mg/dL (2.5-4.9)
[2023-09-07] MEDS: MAGNESIUM 1GM/D5W 100ML - 100 ML IVPB IVPB ONE (11:03)
[2023-09-08 07:51] LABS: HEMATOCRIT 20.7 % (35.4-49); MCH 28.4 pg (25.7-33.7); MCHC 33.8 g/dl (32.0-35.9); MEAN CELL VOLUME 84.1 fl (80-96); MEAN PLT VOLUME 8.7 fl (7.5-11.1); PLATELET COUNT 183 10^3/uL (134-434); RBC 2.46 M/mm3 (4.00-5.60); RDW 16.4 % (11.9-15.9); WHITE BLOOD COUNT 14.7 K/mm3 (4.0-10.0)
[2023-09-08 08:06] LABS: POTASSIUM 3.4 mmol/L (3.5-5.1)
[2023-09-08 08:13] LABS: CALCIUM 7.2 mg/dL (8.5-10.1)
[2023-09-08 08:14] LABS: BLOOD UREA NITROGEN 19.2 mg/dL (7-18)
[2023-09-08 08:17] LABS: CREATININE 0.4 mg/dL (0.55-1.3)
[2023-09-08 09:17] LABS: ANISOCYTOSIS 0; MACROCYTOSIS 0
[2023-09-08] MEDS: POTASSIUM CHLORIDE ORAL LIQUID 20 MEQ/15 ML GT ONE (09:22)
[2023-09-08] MEDS: BANATROL PLUS POWDER PACKET GT SCH (09:22)
[2023-09-08] MEDS: FERROUS SO4 300 MG/5 ML ORAL SOLN UNIT DOSE CUPS GT SCH (09:22)
[2023-09-09 08:36] LABS: HEMATOCRIT 29.9 % (35.4-49); MCH 28.2 pg (25.7-33.7); MCHC 33.3 g/dl (32.0-35.9); MEAN CELL VOLUME 84.7 fl (80-96); MEAN PLT VOLUME 8.8 fl (7.5-11.1); PLATELET COUNT 215 10^3/uL (134-434); RBC 3.53 M/mm3 (4.00-5.60); RDW 17.4 % (11.9-15.9); WHITE BLOOD COUNT 19.3 K/mm3 (4.0-10.0)
[2023-09-09] MEDS: BANATROL PLUS POWDER PACKET GT SCH (14:32)
[2023-09-10 19:44] VITALS: BP 106/68; PULSE 87; TEMP 98
[2023-09-10 21:06] VITALS: RESP 12
== END 2023-09-10 21:33 | DRG 5 ==
LOC: JER 10:42 → JERBED 13:23 → JICU 14:33 → J2W 08-29 20:20 → J5S 09-01 10:29
PROVIDERS: ADMIT Internal Medicine Pulmonary Disease
PROC: 06HM33Z Insertion of Infusion Device into Right Femoral Vein, Percutaneous Approach (ICD-10-PCS; principal; 2023-08-09)
PROC: 4A133B1 Monitoring of Arterial Pressure, Peripheral, Percutaneous Approach (ICD-10-PCS; 2023-08-09)
PROC: 4A133J1 Monitoring of Arterial Pulse, Peripheral, Percutaneous Approach (ICD-10-PCS; 2023-08-09)
PROC: 0BH17EZ Insertion of Endotracheal Airway into Trachea, Via Natural or Artificial Opening (ICD-10-PCS; 2023-08-09)
PROC: 5A1955Z Respiratory Ventilation, Greater than 96 Consecutive Hours (ICD-10-PCS; 2023-08-09)
PROC: 30233R1 Transfusion of Nonautologous Platelets into Peripheral Vein, Percutaneous Approach (ICD-10-PCS; 2023-08-10)
PROC: 30233N1 Transfusion of Nonautologous Red Blood Cells into Peripheral Vein, Percutaneous Approach (ICD-10-PCS; 2023-08-10)
PROC: 05HM33Z Insertion of Infusion Device into Right Internal Jugular Vein, Percutaneous Approach (ICD-10-PCS; 2023-08-11)
PROC: B543ZZA Ultrasonography of Right Jugular Veins, Guidance (ICD-10-PCS; 2023-08-11)
PROC: 0B113F4 Bypass Trachea to Cutaneous with Tracheostomy Device, Percutaneous Approach (ICD-10-PCS; 2023-08-28)
PROC: 0BJ08ZZ Inspection of Tracheobronchial Tree, Via Natural or Artificial Opening Endoscopic (ICD-10-PCS; 2023-08-28)
PROC: 0DH63UZ Insertion of Feeding Device into Stomach, Percutaneous Approach (ICD-10-PCS; 2023-09-03)
DX: A41.51 Sepsis due to Escherichia coli [E. coli] (principal); R65.21 Severe sepsis with septic shock; E43 Unspecified severe protein-calorie malnutrition; C83.30 Diffuse large B-cell lymphoma, unspecified site; C85.80 Other specified types of non-Hodgkin lymphoma, unspecified site; G93.1 Anoxic brain damage, not elsewhere classified; I46.9 Cardiac arrest, cause unspecified; J90 Pleural effusion, not elsewhere classified; J18.9 Pneumonia, unspecified organism; J96.01 Acute respiratory failure with hypoxia; R53.2 Functional quadriplegia; F32.A Depression, unspecified; N17.0 Acute kidney failure with tubular necrosis; R21 Rash and other nonspecific skin eruption; D61.818 Other pancytopenia; D70.8 Other neutropenia; N39.0 Urinary tract infection, site not specified; E87.20 Acidosis, unspecified; M62.84 Sarcopenia; D69.6 Thrombocytopenia, unspecified; E87.6 Hypokalemia; D68.9 Coagulation defect, unspecified; R59.9 Enlarged lymph nodes, unspecified; L89.152 Pressure ulcer of sacral region, stage 2; K59.00 Constipation, unspecified; E87.1 Hypo-osmolality and hyponatremia; E83.51 Hypocalcemia; E87.70 Fluid overload, unspecified; E88.09 Other disorders of plasma-protein metabolism, not elsewhere classified; D64.9 Anemia, unspecified; E83.42 Hypomagnesemia; Z68.34 Body mass index [BMI] 34.0-34.9, adult; R64 Cachexia
CPT/HCPCS: 0241U-QW; 36415; 36430; 36511; 36600; 49440; 70450-TC; 71045-TC-FY; 71275-TC; 74018-TC-FY; 80048; 80053; 80076; 81003; 82550; 82553; 82803; 82962; 83605; 83615; 83735; 84100; 84133; 84484; 84550; 85025; 85027; 85384; 85610; 85730; 86850; 86900; 86901; 86922; 87040; 87070; 87086; 87186; 87205; 87324; 87449; 87635; 93005; 93010; 93306-TC; 94002; 94640; 97162-GP; 99291; G0480; J0131; J1447; J3490; P9034; P9037; P9038; P9047; P9058; Q9967